=== PATIENT | female | born 1945 | race Caucasian/White ===

== ENCOUNTER → 2019-05-05 | Outpatient (CLI) | payer MEDICAID, MEDICARE ==
[2019-05-05 09:12] LABS: Basophils # (auto) 0.1 uL; Basophils % (auto) 1.3 % (0.0-2.0); Eosinophils # (auto) 0.3 uL; Eosinophils % (auto) 4.1 % (0.0-7.0); Hematocrit 35.1 % (36.0-46.0); Hemoglobin 11.9 g/dL (12.2-16.2); Mean Corpuscular Hemoglobin 28.9 pg (28.0-32.0); Mean Corpuscular Hgb Conc. 33.8 g/dL (32.0-36.0); Mean Corpuscular Volume 85.6 fL (80.0-100.0); Monocytes # (auto) 0.5 uL; Monocytes % (auto) 6.9 % (0.0-12.0); Neutrophils # (auto) 3.8 uL; Neutrophils % (auto) 57.7 % (37.0-80.0); Platelet Count (auto) 154 10^3/uL (140-450); Red Cell Distribution Width 14.2 % (11.8-14.3); White Blood Cell 6.7 10^3/uL (4.4-10.8)
[2019-05-05 09:13] LABS: Urine Bacteria MOD /hpf (None Seen); Urine Blood Negative /uL (Negative); Urine Specific Gravity 1.012 (1.001-1.035); Urine WBC 24 /hpf (0 - 5)
[2019-05-05 11:04] LABS: Albumin 3.3 g/dL (3.4-5.0); BUN/Creatinine Ratio 23.2; Bilirubin, Total 0.3 mg/dL (0.2-1.0); Calcium 8.8 mg/dL (8.5-10.1); Total Protein 6.4 g/dL (6.4-8.2)
== END | disposition home or self-care (01) ==
LOC: LAB 07:25
PROVIDERS: ATTEND Physician Assistant
DX: G62.9 Polyneuropathy, unspecified (principal); E11.69 Type 2 diabetes mellitus with other specified complication; F48.2 Pseudobulbar affect; E78.49 Other hyperlipidemia; Z87.19 Personal history of other diseases of the digestive system
CPT/HCPCS: 36415; 80053; 80061; 81001; 83036; 85025

== ENCOUNTER 2019-06-08 17:38 | Inpatient (IN) | payer MEDICARE, MEDICAID ==
[~2019-06-08] VITALS: Ht 167.6 cm; Wt 93.0 kg
[2019-06-08] MEDS ORDERED: DEXTROSE 50% SYRINGE 50 ML IV ONE (17:43)
[2019-06-08] MEDS ORDERED: DEXTROSE (50%) 50ML SYRG IV ONE (17:45)
[2019-06-08] MEDS ORDERED: DEXTROSE 10% 1,000 ML IV ONE (18:00)
[2019-06-08 18:04] LABS: Basophils # (auto) 0.1 uL; Eosinophils # (auto) 0.3 uL; Eosinophils % (auto) 3.1 % (0.0-7.0); Hemoglobin 13.3 g/dL (12.2-16.2); Lymphocytes # (auto) 3.5 uL; Lymphocytes % (auto) 36.6 % (10.0-50.0); Mean Corpuscular Hemoglobin 29.4 pg (28.0-32.0); Mean Corpuscular Hgb Conc. 34.2 g/dL (32.0-36.0); Mean Corpuscular Volume 85.9 fL (80.0-100.0); Monocytes # (auto) 0.8 uL; Monocytes % (auto) 8.3 % (0.0-12.0); Neutrophils # (auto) 4.8 uL; Nucleated Red Blood Cells % 0.1 %; Platelet Count (auto) 119 10^3/uL (140-450); Red Blood Cells 4.54 10^6/uL (4.0-5.20); Red Cell Distribution Width 14.4 % (11.8-14.3); White Blood Cell 9.4 10^3/uL (4.4-10.8)
[2019-06-08 18:18] LABS: INR < 0.93 (0.9-1.15); Partial Thromboplastin Time 28.3 sec (23.64-32.05)
[2019-06-08 18:19] LABS: Albumin 3.6 g/dL (3.4-5.0); Anion Gap 6 (5-15); Blood Alcohol < 3.0 mg/dL (0-5); Blood Urea Nitrogen 49 mg/dL (7-18); Calcium 8.7 mg/dL (8.5-10.1); Carbon Dioxide 22 mmol/L (21-32); Chloride 101 mmol/L (98-107); Glucose 61 mg/dL (74-106); Potassium 4.3 mmol/L (3.5-5.1); Sodium 129 mmol/L (136-145)
[2019-06-08 18:22] LABS: Alanine Aminotransferase 18 U/L (13-56); Alkaline Phosphatase 60 U/L (45-117); Aspartate Aminotransferase 19 U/L (15-37); BUN/Creatinine Ratio 25.3; Bilirubin, Total 0.3 mg/dL (0.2-1.0); GFR African American 33 mL/min; GFR Non-African American 27 mL/min; Total Protein 7.3 g/dL (6.4-8.2)
[2019-06-08 20:54] LABS: Urine Bacteria FEW /hpf (None Seen); Urine Blood Negative /uL (Negative); Urine Specific Gravity 1.004 (1.001-1.035); Urine WBC 4 /hpf (0 - 5)
[2019-06-08 21:15] LABS: Alcohol, Urine < 3.0 mg/dL (0-5); Amphetamine Screen, Urine NEGATIVE (NEGATIVE); Barbiturate Scree,Urine NEGATIVE (NEGATIVE); Benzodiazephine Screen, Urine NEGATIVE (NEGATIVE); Cannabinoid Screen, Urine NEGATIVE (NEGATIVE); Cocaine Screen, Urine NEGATIVE (NEGATIVE); Opiate Scree,Urine NEGATIVE (NEGATIVE); Phencyclidine Screen, Urine NEGATIVE (NEGATIVE)
[2019-06-08] MEDS ORDERED: DEXTROSE (50%) 50ML SYRG IV PRN (22:00)
[2019-06-08] MEDS ORDERED: MORPHINE SULF INJ 2 MG/ML SYRINGE 1ML IV PRN (22:00)
[2019-06-08] MEDS ORDERED: DOCUSATE SOD 100 MG CAP PO PRN (22:00)
[2019-06-08] MEDS ORDERED: TEMAZEPAM 15 MG CAP PO PRN (22:00)
[2019-06-08] MEDS ORDERED: ONDANSETRON HCL 4 MG/2 ML VIAL IV PRN (22:00)
[2019-06-08] MEDS ORDERED: ACETAMINOPHEN 325 MG TAB PO PRN (22:00)
[2019-06-08] MEDS ORDERED: NITROGLYCERIN 0.4 MG SL TAB SL PRN (22:00)
[2019-06-08] MEDS ORDERED: INSLANTI SC (22:02)
[2019-06-08] MEDS ORDERED: PRA25T GT (22:02)
[2019-06-08] MEDS ORDERED: CANA300T OR (22:02)
[2019-06-08] MEDS ORDERED: METO25TA5 PO (22:02)
[2019-06-08] MEDS ORDERED: ATOR1TAB PO (22:02)
[2019-06-08] MEDS ORDERED: HYDR25TA4 PO (22:02)
[2019-06-08] MEDS ORDERED: BRIN1SUS EACHEYE (22:02)
[2019-06-08] MEDS ORDERED: DEXT20CA PO (22:02)
[2019-06-08] MEDS ORDERED: RIVA20TA PO (22:02)
[2019-06-08] MEDS ORDERED: AML5T GT (22:02)
[2019-06-08] MEDS ORDERED: RANI150C11 PO (22:02)
[2019-06-08] MEDS ORDERED: BRIM0.2S2 OP (22:02)
[2019-06-08] MEDS ORDERED: LISI40TA PO (22:02)
[2019-06-08] MEDS ORDERED: DULA0.5I SC (22:02)
[2019-06-08] MEDS ORDERED: NETA0.02 OP (22:02)
[2019-06-08] MEDS ORDERED: RANI-226 PO (22:02)
[2019-06-08] MEDS ORDERED: RIS1T GT (22:02)
[2019-06-08] MEDS: SODIUM CHLORIDE 0.9% 1,000 ML IV SCH (23:27)
[2019-06-08] MEDS: ACCU-CHEK COMFORT CURVE STRIP VI SCH (23:28)
[2019-06-08] MEDS: InsuLIN REG 1unit/0.01ml Soln (100units/ml) SC SCH (23:29)
[2019-06-09] VITALS (7 sets, daily range): BP systolic 123–155; BP diastolic 54–65
--- NOTE | 2019-06-09 00:55 | NUR ---
Telemetry admit from ER INOCENTE KILLIAN admitted to Telemetry unit after SBAR received. Patient oriented to Ed Jay primary RN, unit, room, bed, and unit policies regarding patient care and visiting hours. Patient now on continuous telemetry monitoring, tele box # 70 and telemetry reading on arrival to unit is sinus bradycardia. Patient placed on bedside oxygen, weighed by bedscale and encouraged to call if they need something. All questions and concerns addressed, patient verbalized understanding.
[2019-06-09] MEDS: InsuLIN REG 1unit/0.01ml Soln (100units/ml) SC SCH ×3 (06:00→17:49)
[2019-06-09 06:05] LABS: Calcium 8.8 mg/dL (8.5-10.1); Potassium 4.2 mmol/L (3.5-5.1)
[2019-06-09 06:06] LABS: Basophils # (auto) 0.1 uL; Basophils % (auto) 0.8 % (0.0-2.0); Eosinophils # (auto) 0.2 uL; Eosinophils % (auto) 2.9 % (0.0-7.0); Hematocrit 34.1 % (36.0-46.0); Lymphocytes # (auto) 2.5 uL; Lymphocytes % (auto) 33.2 % (10.0-50.0); Mean Corpuscular Hemoglobin 29.8 pg (28.0-32.0); Mean Corpuscular Hgb Conc. 35.3 g/dL (32.0-36.0); Mean Corpuscular Volume 84.5 fL (80.0-100.0); Monocytes # (auto) 0.7 uL; Monocytes % (auto) 9.9 % (0.0-12.0); Neutrophils % (auto) 53.2 % (37.0-80.0); Nucleated Red Blood Cells % 0.1 %; Platelet Count (auto) 118 10^3/uL (140-450); Red Blood Cells 4.04 10^6/uL (4.0-5.20); Red Cell Distribution Width 13.7 % (11.8-14.3); White Blood Cell 7.6 10^3/uL (4.4-10.8)
[2019-06-09 06:07] LABS: BUN/Creatinine Ratio 26.1
[2019-06-09] MEDS: ACCU-CHEK COMFORT CURVE STRIP VI SCH ×3 (06:25→17:49)
--- NOTE | 2019-06-09 06:50 | NUR ---
Informed hospitalist Blayne re critical blood sugar of 46. Accu check is 51 and 51 after repeated. Patient is alert and able to swallow, 8oz apple juice given. Will continue to monitor.
--- NOTE | 2019-06-09 07:20 | NUR ---
OPENING NOTE ASSUMED CARE OF PT. ALERT AND ORIENTED. NO S/S OF SOB/DISTRESS NOTED. FALL PRECAUTIONS IN PLACE. BED SET TO LOWEST POSITION/LOCKED. BEDSIDE RAILS UP X2. CALL LIGHT WITHIN REACH. BED ALARM ON. INSTRUCTED PT TO CALL FOR ASSISTANCE. DISCUSSED ON POC. PT VERBALIZED UNDERSTANDING. WILL CONTINUE TO MONITOR Q 1HR AND PRN.
[2019-06-09] MEDS: PANTOPRAZOLE 40 MG TAB PO SCH (11:00)
[2019-06-09] MEDS: SODIUM CHLORIDE 0.9% 1,000 ML IV SCH (11:20)
--- NOTE | 2019-06-09 16:30 | NUR ---
PT DECLINED P.T. BECAUSE OF KNEE PAIN.
[2019-06-09] MEDS: D5W/SOD CHLO 0.9% 1,000 ML IV SCH (16:31)
--- NOTE | 2019-06-09 19:15 | NUR ---
Opening Shift Note Received report from Sanaz DEL RIO. Assumed care of patient, awake and alert. No S/S of distress/SOB or pain. Instructed on POC and to call for assist PRN, will continue to monitor for changes Q1hr and PRN.
[2019-06-09] MEDS: hydrALAZINE HCL 20 MG/ML VL IV PRN (22:05)
[2019-06-09] MEDS: ATORVASTATIN 20 MG TAB PO SCH (22:06)
[2019-06-10] MEDS: ACCU-CHEK COMFORT CURVE STRIP VI SCH ×5 (00:18→22:29)
[2019-06-10] MEDS: InsuLIN REG 1unit/0.01ml Soln (100units/ml) SC SCH ×5 (00:19→22:29)
[2019-06-10 05:43] VITALS: BP 162/64
[2019-06-10] MEDS: hydrALAZINE HCL 20 MG/ML VL IV PRN (06:05)
[2019-06-10] MEDS: D5W/SOD CHLO 0.9% 1,000 ML IV SCH (06:07)
--- NOTE | 2019-06-10 07:25 | NUR ---
Opening Shift Note: Assumed care of patient. Patient asleep in bed. No S/S of distress/SOB or pain. Bed in lowest locked position, side rails up x 2, call light within reach. Patient will be instructed on POC and to call for assist PRN, will continue to monitor for changes Q1hr and PRN.
[2019-06-10 07:43] LABS: Basophils # (auto) 0.1 uL; Eosinophils # (auto) 0.1 uL; Eosinophils % (auto) 1.8 % (0.0-7.0); Hematocrit 37.9 % (36.0-46.0); Hemoglobin 13.3 g/dL (12.2-16.2); Lymphocytes # (auto) 1.7 uL; Lymphocytes % (auto) 24.6 % (10.0-50.0); Mean Corpuscular Hemoglobin 29.7 pg (28.0-32.0); Mean Corpuscular Hgb Conc. 35.1 g/dL (32.0-36.0); Mean Corpuscular Volume 84.8 fL (80.0-100.0); Monocytes # (auto) 0.7 uL; Monocytes % (auto) 10.7 % (0.0-12.0); Neutrophils # (auto) 4.2 uL; Neutrophils % (auto) 61.9 % (37.0-80.0); Nucleated Red Blood Cells % 0.1 %; Platelet Count (auto) 128 10^3/uL (140-450); Red Blood Cells 4.47 10^6/uL (4.0-5.20); Red Cell Distribution Width 14.2 % (11.8-14.3); White Blood Cell 6.9 10^3/uL (4.4-10.8)
[2019-06-10 07:54] LABS: Calcium 8.8 mg/dL (8.5-10.1); Magnesium 2.5 mg/dL (1.6-2.6); Potassium 4.9 mmol/L (3.5-5.1)
[2019-06-10 07:57] LABS: BUN/Creatinine Ratio 26.2
[2019-06-10 08:36] LABS: Folate (Folic Acid) > 24.00 ng/mL (5.38-24)
--- NOTE | 2019-06-10 08:49 | NUR ---
EKG ORDERED AND PERFORMED.
[2019-06-10 09:00] VITALS: BP 139/50
[2019-06-10] MEDS ORDERED: amLODIPine BESYLATE 5 MG TAB PO SCH (10:00)
[2019-06-10] MEDS: ASPirin-EC 81 mg tab PO SCH (10:26)
[2019-06-10] MEDS: amLODIPine BESYLATE 5 MG TAB PO SCH (10:26)
[2019-06-10] MEDS: ENOXAPARIN SOD 30 MG/0.3 ML SYRINGE SC SCH (10:27)
[2019-06-10] MEDS: PANTOPRAZOLE 40 MG TAB PO SCH (10:27)
--- NOTE | 2019-06-10 11:40 | NUR ---
IV insertion: IV access obtained, via clean sterile technique by inserting 22 gauge catheter at RIGHT FOREARM after 2 attempts. IV secured properly. No trauma to site. Patient tolerated well.
--- NOTE | 2019-06-10 11:45 | NUR ---
IV removal: IV DC'd with clean sterile technique, catheter fully intact. Pressure dressing applied to site. Patient tolerated well.
[2019-06-10] MEDS: SODIUM CHLORIDE 0.9% 1,000 ML IV SCH (12:02)
[2019-06-10] MEDS ORDERED: DEXTROSE (50%) 50ML SYRG IV PRN (12:15)
[2019-06-10] MEDS ORDERED: LISINOPRIL 10 MG TAB PO ONE (12:15)
[2019-06-10 13:00] VITALS: BP 135/60
--- NOTE | 2019-06-10 15:45 | NUR ---
Discharge planning per consult, patient has order to dc with home health for a safety evaluation, med management and vitals. Presented patient with a choice letter and options for home health. She advised she did not have a preference. At the time of signing patient advised that she had poor eyesight. Nurse Herbert was there as a witness that patient indicated that she did not have a preference. Form was signed by the nurse and myself. Referral was faxed to [facility], placed a follow up call, spoke with Doroteo and was advised that they will accept this patient on discharge. Patient does not have a discharge order as of today 06.10.19. Doroteo advised she will follow up tomorrow 06.11.19 to see if the patient was discharged and if so, will start care on Saturday06.12.19. Nurse Mims was advised. Addendum: 06/10/19 at 1555 by MURIEL MOOREO SS Amended: Links added. Addendum: 06/11/19 at 1533 by MURIEL CHET SS Received a call from Nurse Garcia advising that patient is scheduled to dc today. Advised that home health was set up with [facility] and start of care will be tomorrow Saturday06.12.19. Placed a follow up call to [facility], spoke with Sona, advised that patient is dc'd as of today, confirmed start of care for tomorrow. Nurse Garcia was advised of dc plan.
[2019-06-10 17:00] VITALS: BP_SYST 126; BP_SYST 136; BP_SYST 152; BP_DIAS 40; BP_DIAS 97
--- NOTE | 2019-06-10 17:05 | NUR ---
EEG COMPLETED AT BEDSIDE. RN ED AWARE.
--- NOTE | 2019-06-10 17:21 | NUR ---
Orthostatic blood pressure: LAYING- 126/40 SITTING- 136/55 STANDING- 152/97
[2019-06-10] MEDS ORDERED: INSULIN LANTUS (GLARGINE) 1 /0.01ml (100units/ml) SC SCH (22:00)
[2019-06-10] MEDS: ATORVASTATIN 20 MG TAB PO SCH (22:17)
[2019-06-10 22:18] VITALS: BP 147/61
[2019-06-11] MEDS: SODIUM CHLORIDE 0.9% 1,000 ML IV SCH (02:13)
--- NOTE | 2019-06-11 03:51 | NUR ---
Opening Shift Note Assumed care of patient, awake and alert oriented x4. No S/S of distress/SOB or pain noted. Bed is in lowest locked position with bed rails up x2 and call light is within reach of the patient. Instructed on POC and to call for assist PRN.
--- NOTE | 2019-06-11 03:52 | NUR ---
IV insertion IV access obtained, via clean sterile technique by inserting 22 gauge catheter at right forearm. IV secured properly. No trauma to site. Patient tolerated well.
--- NOTE | 2019-06-11 03:53 | NUR ---
IV removal IV DC'd with clean sterile technique, catheter fully intact. Pressure dressing applied to site and secured with coband. Patient tolerated well.
[2019-06-11 05:40] VITALS: BP 122/47
[2019-06-11 06:40] LABS: Potassium 4.8 mmol/L (3.5-5.1)
[2019-06-11] MEDS: ACCU-CHEK COMFORT CURVE STRIP VI SCH ×2 (06:40→11:24)
[2019-06-11] MEDS: InsuLIN REG 1unit/0.01ml Soln (100units/ml) SC SCH ×2 (06:40→11:29)
[2019-06-11 06:45] LABS: BUN/Creatinine Ratio 25.1; Calcium 8.6 mg/dL (8.5-10.1)
--- NOTE | 2019-06-11 07:45 | NUR ---
Opening Note Assumed pt care from [facility] nurse. PT is a/ox3-4; her demeanor is slightly flat as well as anxious. Pt started crying with me during my assessment; upon asking her what was wrong she stated "I'm going home today". Spoke with pt about going home as well as who she lives with; to which calmed her down. Discussed POC with pt; pt verbalized understanding. Safety measures maintained with call light within reach, bed in lowest position and side rails up. Will continue to monitor for changes q1hr and prn.
[2019-06-11 09:00] VITALS: BP 120/73
[2019-06-11] MEDS: PANTOPRAZOLE 40 MG TAB PO SCH (09:40)
[2019-06-11] MEDS: ASPirin-EC 81 mg tab PO SCH (09:40)
[2019-06-11] MEDS: ENOXAPARIN SOD 30 MG/0.3 ML SYRINGE SC SCH (09:40)
[2019-06-11] MEDS: amLODIPine BESYLATE 5 MG TAB PO SCH (09:41)
[2019-06-11] MEDS ORDERED: LISINOPRIL 10 MG TAB PO SCH (10:00)
--- NOTE | 2019-06-11 10:00 | NUR ---
Pt Self removed Jorgensen Catheter Pt self removed jorgensen cath upon moving around in bed. Assessed pt; site is asymptomatic and pt states that she is not in any pain. Will reinsert jorgensen catheter.
--- NOTE | 2019-06-11 10:33 | NUR ---
Jorgensen Catheter Insertion 14 luxembourgish jorgensen catheter placed using sterile technique. Pt tolerated well. Bag hung to gravity and secured to leg. Will continue to monitor and instructed pt to be careful with the catheter.
[2019-06-11] MEDS ORDERED: INSULIN LANTUS (GLARGINE) 1 /0.01ml (100units/ml) SC ONE (10:45)
--- NOTE | 2019-06-11 11:00 | NUR ---
Dr Arnold at Bedside Spoke with pt as well as [id number] about d/c today home. Pt verbalized understanding. To remove jorgensen catheter. Will follow through with orders.
--- NOTE | 2019-06-11 11:10 | NUR ---
LYNN CATHETER REMOVED CATHETER REMOVED WITHOUT ANY COMPLICATIONS NOTED. PT TOLERATED WELL. PT INSTRUCTED ON NEED TO VOID BEFORE D/C; PT VERBALIZED UNDERSTANDING.
[2019-06-11] MEDS ORDERED: INSLANTI SC (12:22)
[2019-06-11] MEDS ORDERED: AML5T PO (12:22)
[2019-06-11] MEDS ORDERED: LISI-646 PO (12:23)
--- NOTE | 2019-06-11 12:34 | NUR ---
assessment Patient is 73 year old female who is alert and oriented. Patients cognitive abilities are intact. Prior to admission patient lived home with family and functioned with assistance. Per patient she will return home to her prior living arrangements post discharge and family will transport her home. Patient informed me her daughter in law Irma is her caregiver. Patient has a cane and fww for home use. Patient has a ss consult for safety, PT med management and vitals. Patient and Irma agree to home health. I informed patient she has a right to speak to a professor of social work regarding all care. I informed patient she has a right to participate in any and all discharge planning. Patient does not have a POA and advanced directive. I have offered patient information on POA and advanced directives. I informed the patient the advantages and benefits of having an Advanced Directive. Patient verbalized understanding and agreed to discharge plan home with home health. Addendum: 06/11/19 at 1243 by Ricarda LOZOYA Amended: Links added.
--- NOTE | 2019-06-11 12:35 | NUR ---
PT ABLE TO VOID W/O DIFFICULTY
[2019-06-11 13:00] VITALS: BP 129/78
[2019-06-11 14:33] VITALS: BP 129/78
--- NOTE | 2019-06-11 14:59 | NUR ---
Spoke with Julissa from Social Service Per D/C Home health has been set up through [facility] and will begin service tomorrow. Will speak to pt and pt's [id number].
--- NOTE | 2019-06-11 16:00 | NUR ---
IV D/C'ed IV from pt's R FA removed fully intact. Site is asymptomatic and pt tolerated removal well. Pressure applied for 3 minutes with gauze; wrapped site in coban. Pt instructed to leave dressing on for 30 minutes. Pt verbalized understanding.
--- NOTE | 2019-06-11 16:15 | NUR ---
PT D/D'ed Off Unit Pt taken off unit via wheelchair accompanied by her [id number]. IV removed, telebox removed and pt took all belongings as well as educational material. All questions were answered, all prescriptions were given, and pt was instructed to make f/u appointments. Both daughter in law and pt verbalized understanding.
== END 2019-06-11 16:15 | disposition home health service (06) | DRG 637 ==
LOC: ER 17:38 → TELE 17:39 → TELE-WESTW 23:24
PROVIDERS: ADMIT Nurse Practitioner; ATTEND Internal Medicine
DX: E11.649 Type 2 diabetes mellitus with hypoglycemia without coma (principal); G93.41 Metabolic encephalopathy; E87.1 Hypo-osmolality and hyponatremia; N17.9 Acute kidney failure, unspecified; R00.1 Bradycardia, unspecified; N18.4 Chronic kidney disease, stage 4 (severe); I12.9 Hypertensive chronic kidney disease with stage 1 through stage 4 chronic kidney disease, or unspecified chronic kidney disease; E11.22 Type 2 diabetes mellitus with diabetic chronic kidney disease; E66.01 Morbid (severe) obesity due to excess calories; E78.5 Hyperlipidemia, unspecified; F12.90 Cannabis use, unspecified, uncomplicated; G89.29 Other chronic pain; I25.10 Atherosclerotic heart disease of native coronary artery without angina pectoris; R55 Syncope and collapse; M25.461 Effusion, right knee; E11.21 Type 2 diabetes mellitus with diabetic nephropathy; H54.8 Legal blindness, as defined in USA; M85.80 Other specified disorders of bone density and structure, unspecified site; M19.90 Unspecified osteoarthritis, unspecified site; Z68.33 Body mass index [BMI] 33.0-33.9, adult; Z88.1 Allergy status to other antibiotic agents; Z88.5 Allergy status to narcotic agent; Z86.73 Personal history of transient ischemic attack (TIA), and cerebral infarction without residual deficits; Z95.1 Presence of aortocoronary bypass graft; Z88.0 Allergy status to penicillin; Z88.2 Allergy status to sulfonamides; Z88.8 Allergy status to other drugs, medicaments and biological substances; Z79.4 Long term (current) use of insulin; Z79.82 Long term (current) use of aspirin; Z79.899 Other long term (current) drug therapy; Z82.49 Family history of ischemic heart disease and other diseases of the circulatory system; Z86.718 Personal history of other venous thrombosis and embolism; Z83.3 Family history of diabetes mellitus; Z90.49 Acquired absence of other specified parts of digestive tract
CPT/HCPCS: 36415; 70450; 70551; 71045; 73562; 80048; 80053; 80061; 80307; 80320; 81001; 82607; 82746; 82962; 83036; 83735; 84443; 84484; 85025; 85610; 85730; 93005; 93306; 93886; 95819; 96365; 96375; 97116; 97163; 97530; G0378; J1815; J7042

== ENCOUNTER → 2019-06-24 | Outpatient (CLI) | payer MEDICARE, MEDICAID ==
[~2019-06-24] MED LIST: AML5T PO; ATOR1TAB PO; BRIM0.2S2 OP; BRIN1SUS EACHEYE; DEXT20CA PO; DULA0.5I SC; INSLANTI SC; LISI-646 PO; NETA0.02 OP; PRA25T GT; RANI-226 PO; RANI150C11 PO; RIS1T GT; RIVA20TA PO
[2019-06-24 12:19] LABS: Magnesium 2.2 mg/dL (1.6-2.6); Potassium 4.5 mmol/L (3.5-5.1)
[2019-06-24 12:27] LABS: Albumin 3.4 g/dL (3.4-5.0); Bilirubin, Total 0.3 mg/dL (0.2-1.0); Calcium 9.1 mg/dL (8.5-10.1); Phosphorus 4.4 mg/dL (2.5-4.90); Total Protein 6.7 g/dL (6.4-8.2); Uric Acid 7.7 mg/dL (2.6-6.0)
== END | disposition home or self-care (01) ==
LOC: LAB 11:00
PROVIDERS: ATTEND Internal Medicine Nephrology
DX: E56.9 Vitamin deficiency, unspecified (principal); M10.9 Gout, unspecified; E21.3 Hyperparathyroidism, unspecified; N39.0 Urinary tract infection, site not specified; I12.9 Hypertensive chronic kidney disease with stage 1 through stage 4 chronic kidney disease, or unspecified chronic kidney disease; N18.3 Chronic kidney disease, stage 3 (moderate)
CPT/HCPCS: 36415; 80053; 82306; 83735; 83970; 84100; 84550; 87086

== ENCOUNTER → 2019-07-06 | Outpatient (CLI) | payer MEDICARE, MEDICAID ==
[~2019-07-06] VITALS: Ht 167.6 cm; Wt 94.8 kg
[~2019-07-06] MED LIST changes: +ADENOSINE 80 MG in GIVE UN-DILUTED 0 ML IV ONE; +ADENOSINE 90 MG/30 ML INJ IV ONE
== END | disposition home or self-care (01) ==
LOC: Rad HDHVI 12:58
PROVIDERS: ATTEND Internal Medicine Cardiovascular Disease
DX: I12.9 Hypertensive chronic kidney disease with stage 1 through stage 4 chronic kidney disease, or unspecified chronic kidney disease (principal); E11.22 Type 2 diabetes mellitus with diabetic chronic kidney disease; N18.4 Chronic kidney disease, stage 4 (severe); I25.10 Atherosclerotic heart disease of native coronary artery without angina pectoris; E21.3 Hyperparathyroidism, unspecified; R42 Dizziness and giddiness; E78.5 Hyperlipidemia, unspecified; G89.29 Other chronic pain; M19.90 Unspecified osteoarthritis, unspecified site; E11.21 Type 2 diabetes mellitus with diabetic nephropathy; E66.01 Morbid (severe) obesity due to excess calories; Z68.33 Body mass index [BMI] 33.0-33.9, adult; Z86.718 Personal history of other venous thrombosis and embolism; Z95.1 Presence of aortocoronary bypass graft; Z86.73 Personal history of transient ischemic attack (TIA), and cerebral infarction without residual deficits; Z79.899 Other long term (current) drug therapy; Z79.82 Long term (current) use of aspirin; Z79.4 Long term (current) use of insulin; Z90.49 Acquired absence of other specified parts of digestive tract
CPT/HCPCS: 78452; 93005; 96374; 96375; A9500; J0153

== ENCOUNTER → 2019-08-04 | Outpatient (CLI) | payer MEDICARE, MEDICAID ==
[~2019-08-04] MED LIST changes: -ADENOSINE 80 MG in GIVE UN-DILUTED 0 ML IV ONE; -ADENOSINE 90 MG/30 ML INJ IV ONE
[2019-08-04 12:19] LABS: Calcium 8.4 mg/dL (8.5-10.1); Potassium 4.8 mmol/L (3.5-5.1)
[2019-08-04 12:21] LABS: BUN/Creatinine Ratio 20.2; Uric Acid 7.5 mg/dL (2.6-6.0)
== END | disposition home or self-care (01) ==
LOC: LAB 11:21
PROVIDERS: ATTEND Internal Medicine
DX: I12.9 Hypertensive chronic kidney disease with stage 1 through stage 4 chronic kidney disease, or unspecified chronic kidney disease (principal); E11.22 Type 2 diabetes mellitus with diabetic chronic kidney disease; N18.4 Chronic kidney disease, stage 4 (severe); E78.5 Hyperlipidemia, unspecified; Z12.11 Encounter for screening for malignant neoplasm of colon
CPT/HCPCS: 36415; 80048; 84550

== ENCOUNTER → 2019-08-18 | Outpatient (CLI) | payer MEDICARE, MEDICAID ==
[~2019-08-18] MED LIST changes: +ALLO100T PO; +BRIM0.2S2 EACHEYE; -BRIM0.2S2 OP; +LATA0.0015 EACHEYE; +LISI10TA6 PO; +NETA0.02 EACHEYE; -NETA0.02 OP; +POLYSOL2 EACHEYE; -PRA25T GT; +PRA25T PO
[2019-08-18 09:15] VITALS: BP 138/66
--- NOTE | 2019-08-18 09:45 | NUR ---
Pre-Op Discharge Summary: See e-MAR for any medications given for this visit. Pre-op orders received and carried out per MD of EKG, LABS and chest xrays. Patient given a copy of EKG with instructions to go to [facility] out patient for further follow up care.
[2019-08-18 10:46] VITALS: BP 138/66
[2019-08-18 12:35] LABS: Basophils # (auto) 0.1 uL; Basophils % (auto) 1.9 % (0.0-2.0); Eosinophils # (auto) 0.2 uL; Eosinophils % (auto) 3.3 % (0.0-7.0); Hematocrit 35.3 % (36.0-46.0); Hemoglobin 12.3 g/dL (12.2-16.2); Lymphocytes # (auto) 2.2 uL; Lymphocytes % (auto) 33.7 % (10.0-50.0); Mean Corpuscular Hemoglobin 30.4 pg (28.0-32.0); Mean Corpuscular Hgb Conc. 34.8 g/dL (32.0-36.0); Mean Corpuscular Volume 87.3 fL (80.0-100.0); Monocytes # (auto) 0.5 uL; Monocytes % (auto) 7.4 % (0.0-12.0); Neutrophils # (auto) 3.4 uL; Neutrophils % (auto) 53.7 % (37.0-80.0); Platelet Count (auto) 184 10^3/uL (140-450); Red Blood Cells 4.04 10^6/uL (4.0-5.20); Red Cell Distribution Width 13.3 % (11.8-14.3); White Blood Cell 6.4 10^3/uL (4.4-10.8)
[2019-08-18 12:44] LABS: BUN/Creatinine Ratio 24.6; Calcium 8.5 mg/dL (8.5-10.1); Potassium 4.9 mmol/L (3.5-5.1)
[2019-08-18 12:49] LABS: INR 0.96 (0.9-1.15)
== END | disposition home or self-care (01) ==
LOC: Rad HDHVI 09:08
PROVIDERS: ATTEND Internal Medicine Cardiovascular Disease
DX: Z01.812 Encounter for preprocedural laboratory examination (principal); I70.0 Atherosclerosis of aorta; R94.31 Abnormal electrocardiogram [ECG] [EKG]
CPT/HCPCS: 36415; 71046; 80048; 85025; 85610; 85730; 93005; G0463

== ENCOUNTER 2019-08-29 22:04 | Emergency (ER) | payer MEDICARE, MEDICAID ==
[~2019-08-29] VITALS: Ht 167.6 cm; Wt 99.8 kg
[~2019-08-29 22:04] MED LIST changes: -LISI-646 PO; -RANI-226 PO; -RIS1T GT
[2019-08-29] MEDS ORDERED: SODIUM CHLORIDE 0.9% 500 ML IVB ONE (22:52)
[2019-08-29] MEDS ORDERED: InsuLIN REG 1unit/0.01ml Soln (100units/ml) IV ONE (23:00)
[2019-08-29 23:15] LABS: Basophils # (auto) 0.1 uL; Eosinophils # (auto) 0.3 uL; Eosinophils % (auto) 4.5 % (0.0-7.0); Hematocrit 32.9 % (36.0-46.0); Hemoglobin 11.5 g/dL (12.2-16.2); Lymphocytes # (auto) 1.7 uL; Lymphocytes % (auto) 25.4 % (10.0-50.0); Mean Corpuscular Hemoglobin 30.7 pg (28.0-32.0); Mean Corpuscular Hgb Conc. 34.9 g/dL (32.0-36.0); Mean Corpuscular Volume 88.1 fL (80.0-100.0); Monocytes # (auto) 0.6 uL; Monocytes % (auto) 8.6 % (0.0-12.0); Neutrophils # (auto) 4.2 uL; Neutrophils % (auto) 60.5 % (37.0-80.0); Platelet Count (auto) 175 10^3/uL (140-450); Red Blood Cells 3.73 10^6/uL (4.0-5.20); Red Cell Distribution Width 13.1 % (11.8-14.3); White Blood Cell 6.9 10^3/uL (4.4-10.8)
[2019-08-29 23:32] LABS: Magnesium 2.1 mg/dL (1.6-2.6)
[2019-08-29 23:33] LABS: Albumin 3.1 g/dL (3.4-5.0); BUN/Creatinine Ratio 21.8; Calcium 8.2 mg/dL (8.5-10.1); Potassium 4.7 mmol/L (3.5-5.1)
[2019-08-29 23:47] LABS: Bilirubin, Total 0.2 mg/dL (0.2-1.0); Total Protein 6.3 g/dL (6.4-8.2)
[2019-08-30 01:45] VITALS: BP 142/78
== END 2019-08-30 02:39 | disposition home or self-care (01) ==
LOC: EDBD 22:04 → ER 22:09
DX: E11.65 Type 2 diabetes mellitus with hyperglycemia (principal); I10 Essential (primary) hypertension; Z88.0 Allergy status to penicillin; Z88.6 Allergy status to analgesic agent; Z88.8 Allergy status to other drugs, medicaments and biological substances; Z79.899 Other long term (current) drug therapy
CPT/HCPCS: 36415; 71045; 80053; 82010; 82962; 83735; 84484; 85025; 93005; 96361; 96374; 99284; J7040

== ENCOUNTER → 2019-09-04 | Outpatient (CLI) | payer MEDICARE, MEDICAID | END | disposition home or self-care (01) | LOC: Rad HDHVI 12:16 | PROVIDERS: ATTEND Internal Medicine Cardiovascular Disease | DX: I51.7 Cardiomegaly (principal); R06.02 Shortness of breath | CPT/HCPCS: 71046 ==

== ENCOUNTER → 2019-09-21 | Outpatient (CLI) | payer MEDICARE, MEDICAID ==
[~2019-09-21] MED LIST changes: +OMEP20TA PO
[2019-09-21 15:14] LABS: Basophils # (auto) 0.1 uL; Basophils % (auto) 1.5 % (0.0-2.0); Eosinophils # (auto) 0.3 uL; Eosinophils % (auto) 5.5 % (0.0-7.0); Hematocrit 33.6 % (36.0-46.0); Hemoglobin 11.9 g/dL (12.2-16.2); Mean Corpuscular Hemoglobin 31.3 pg (28.0-32.0); Mean Corpuscular Hgb Conc. 35.3 g/dL (32.0-36.0); Mean Corpuscular Volume 88.8 fL (80.0-100.0); Monocytes # (auto) 0.5 uL; Monocytes % (auto) 9.3 % (0.0-12.0); Neutrophils # (auto) 2.8 uL; Neutrophils % (auto) 48.7 % (37.0-80.0); Nucleated Red Blood Cells % 0.1 %; Platelet Count (auto) 153 10^3/uL (140-450); Red Blood Cells 3.79 10^6/uL (4.0-5.20); Red Cell Distribution Width 14.1 % (11.8-14.3); White Blood Cell 5.8 10^3/uL (4.4-10.8)
[2019-09-21 15:19] LABS: Albumin 3.6 g/dL (3.4-5.0); Potassium 4.8 mmol/L (3.5-5.1)
[2019-09-21 15:20] LABS: Urine Bacteria NONE SEEN /hpf (None Seen); Urine Blood Negative /uL (Negative); Urine Specific Gravity 1.021 (1.001-1.035); Urine WBC 2 /hpf (0 - 5)
[2019-09-21 15:23] LABS: BUN/Creatinine Ratio 25.7; Bilirubin, Total 0.3 mg/dL (0.2-1.0); Phosphorus 3.4 mg/dL (2.5-4.90); Total Protein 6.8 g/dL (6.4-8.2); Uric Acid 6.1 mg/dL (2.6-6.0)
[2019-09-21 15:35] LABS: Protein, Urine 59.8 mg/dL (0.0-11.9)
== END | disposition home or self-care (01) ==
LOC: LAB 14:29
PROVIDERS: ATTEND Internal Medicine
DX: E11.22 Type 2 diabetes mellitus with diabetic chronic kidney disease (principal); N18.3 Chronic kidney disease, stage 3 (moderate); E78.5 Hyperlipidemia, unspecified; E21.3 Hyperparathyroidism, unspecified; R80.9 Proteinuria, unspecified; D63.1 Anemia in chronic kidney disease
CPT/HCPCS: 36415; 80053; 81001; 82043; 82570; 83036; 83970; 84100; 84156; 84550; 85025

== ENCOUNTER → 2019-10-05 | Outpatient (CLI) | payer MEDICARE ==
[2019-10-05 13:02] LABS: BUN/Creatinine Ratio 27.4; Calcium 8.6 mg/dL (8.5-10.1); Potassium 4.5 mmol/L (3.5-5.1)
== END | disposition home or self-care (01) ==
LOC: LAB 11:12
PROVIDERS: ATTEND Internal Medicine
DX: E11.9 Type 2 diabetes mellitus without complications (principal)
CPT/HCPCS: 36415; 80048

== ENCOUNTER 2019-10-22 13:09 | Inpatient (IN) | payer MEDICARE, MEDICAID ==
[~2019-10-22] VITALS: Ht 167.6 cm; Wt 93.4 kg
[~2019-10-22 13:09] MED LIST changes: -LATA0.0015 EACHEYE; +LATA0.0019 EACHEYE; -PRA25T PO; +PRAM0.252 PO
[2019-10-22 13:57] LABS: Basophils # (auto) 0.1 uL; Basophils % (auto) 0.9 % (0.0-2.0); Eosinophils # (auto) 0.2 uL; Eosinophils % (auto) 2.9 % (0.0-7.0); Hematocrit 35.8 % (36.0-46.0); Hemoglobin 12.3 g/dL (12.2-16.2); Lymphocytes # (auto) 1.4 uL; Lymphocytes % (auto) 17.5 % (10.0-50.0); Mean Corpuscular Hemoglobin 30.8 pg (28.0-32.0); Mean Corpuscular Hgb Conc. 34.3 g/dL (32.0-36.0); Mean Corpuscular Volume 89.8 fL (80.0-100.0); Monocytes # (auto) 0.5 uL; Monocytes % (auto) 5.7 % (0.0-12.0); Neutrophils # (auto) 5.9 uL; Nucleated Red Blood Cells % 0.1 %; Platelet Count (auto) 153 10^3/uL (140-450); Red Blood Cells 3.98 10^6/uL (4.0-5.20)
[2019-10-22 14:18] LABS: Albumin 3.4 g/dL (3.4-5.0); Calcium 8.8 mg/dL (8.5-10.1); Potassium 4.1 mmol/L (3.5-5.1)
[2019-10-22 14:27] LABS: BUN/Creatinine Ratio 22.5; Bilirubin, Total 0.3 mg/dL (0.2-1.0); Total Protein 7.1 g/dL (6.4-8.2)
[2019-10-22] MEDS ORDERED: HYDROmorphone HCL 2 MG/ML VL IV ONE (15:00)
[2019-10-22] MEDS ORDERED: ONDANSETRON HCL 4 MG/2 ML VIAL IV ONE (15:00)
[2019-10-22] MEDS ORDERED: HYDROcodone-ACET 7.5/325MG TAB PO ONE (15:15)
[2019-10-22] MEDS ORDERED: HYDROcodone-ACET 5/325MG TAB PO PRN (17:45)
[2019-10-22] MEDS ORDERED: ACETAMINOPHEN 500 MG TAB PO PRN (17:45)
[2019-10-22] MEDS ORDERED: DEXTROSE (50%) 50ML SYRG IV PRN (17:45)
[2019-10-22] MEDS ORDERED: ONDANSETRON HCL 4 MG/2 ML VIAL IV PRN (17:45)
[2019-10-22] MEDS ORDERED: NITROGLYCERIN 0.4 MG SL TAB SL PRN (17:45)
[2019-10-22] MEDS ORDERED: ATORVASTATIN 20 MG TAB PO SCH (18:00)
[2019-10-22] MEDS: RIVAROXABAN 20 MG TAB PO SCH (18:37)
[2019-10-22 21:29] VITALS: BP 125/53
[2019-10-22] MEDS: LATANOPROST 0.005 % OPTH(EYE) SOL 2.5ML EACHEYE SCH (21:59)
[2019-10-22 22:00] VITALS: BP 125/53
[2019-10-22] MEDS: InsuLIN REG 1unit/0.01ml Soln (100units/ml) SC SCH (22:00)
[2019-10-22] MEDS: ACCU-CHEK COMFORT CURVE STRIP VI SCH (22:00)
[2019-10-22] MEDS: ATORVASTATIN 20 MG TAB PO SCH (22:00)
[2019-10-23 01:42] LABS: Urine Bacteria NONE SEEN /hpf (None Seen); Urine Blood Negative /uL (Negative); Urine Specific Gravity 1.008 (1.001-1.035); Urine WBC 4 /hpf (0 - 5)
[2019-10-23 05:00] VITALS: BP 144/99
[2019-10-23] MEDS: INSULIN LANTUS (GLARGINE) 1 /0.01ml (100units/ml) SC SCH (06:45)
[2019-10-23] MEDS: ACCU-CHEK COMFORT CURVE STRIP VI SCH ×4 (06:45→22:29)
[2019-10-23] MEDS: InsuLIN REG 1unit/0.01ml Soln (100units/ml) SC SCH ×4 (06:45→22:30)
[2019-10-23 09:00] VITALS: BP 166/69
[2019-10-23] MEDS: amLODIPine BESYLATE 5 MG TAB PO SCH (09:11)
[2019-10-23] MEDS: ALLOPURINOL 100 MG TAB PO SCH (09:11)
[2019-10-23] MEDS: FAMOTIDINE 20 MG TAB PO SCH (09:12)
[2019-10-23] MEDS: LISINOPRIL 10 MG TAB PO SCH (09:13)
[2019-10-23 12:48] LABS: Folate (Folic Acid) > 24.00 ng/mL (5.38-24)
[2019-10-23 13:00] VITALS: BP 152/55
[2019-10-23] MEDS: RIVAROXABAN 20 MG TAB PO SCH (17:35)
[2019-10-23 22:00] VITALS: BP 144/76
[2019-10-23] MEDS: LATANOPROST 0.005 % OPTH(EYE) SOL 2.5ML EACHEYE SCH (22:29)
[2019-10-23] MEDS: ATORVASTATIN 20 MG TAB PO SCH (22:29)
[2019-10-24 05:30] VITALS: BP 154/65
[2019-10-24] MEDS: ACCU-CHEK COMFORT CURVE STRIP VI SCH ×2 (06:38→12:09)
[2019-10-24] MEDS: InsuLIN REG 1unit/0.01ml Soln (100units/ml) SC SCH ×2 (06:39→11:30)
[2019-10-24] MEDS: INSULIN LANTUS (GLARGINE) 1 /0.01ml (100units/ml) SC SCH (06:39)
[2019-10-24 09:00] VITALS: BP 138/100
[2019-10-24 09:09] VITALS: BP 138/100
[2019-10-24] MEDS: FAMOTIDINE 20 MG TAB PO SCH (09:40)
[2019-10-24] MEDS: LISINOPRIL 10 MG TAB PO SCH (09:41)
[2019-10-24] MEDS: ALLOPURINOL 100 MG TAB PO SCH (09:41)
[2019-10-24] MEDS: amLODIPine BESYLATE 5 MG TAB PO SCH (09:41)
== END 2019-10-24 12:34 | disposition home or self-care (01) | DRG 637 ==
LOC: EDBD 13:09 → ER 13:09 → TELE 13:10 → TELE-WESTW 22:10
PROVIDERS: ADMIT Nurse Practitioner Acute Care; ATTEND Internal Medicine
DX: E11.649 Type 2 diabetes mellitus with hypoglycemia without coma (principal); G93.41 Metabolic encephalopathy; E11.22 Type 2 diabetes mellitus with diabetic chronic kidney disease; N18.3 Chronic kidney disease, stage 3 (moderate); E66.01 Morbid (severe) obesity due to excess calories; I49.5 Sick sinus syndrome; E11.319 Type 2 diabetes mellitus with unspecified diabetic retinopathy without macular edema; E78.5 Hyperlipidemia, unspecified; H54.8 Legal blindness, as defined in USA; I12.9 Hypertensive chronic kidney disease with stage 1 through stage 4 chronic kidney disease, or unspecified chronic kidney disease; Z79.01 Long term (current) use of anticoagulants; Z79.4 Long term (current) use of insulin; Z82.49 Family history of ischemic heart disease and other diseases of the circulatory system; Z86.73 Personal history of transient ischemic attack (TIA), and cerebral infarction without residual deficits; Z95.0 Presence of cardiac pacemaker; Z95.1 Presence of aortocoronary bypass graft; Z90.49 Acquired absence of other specified parts of digestive tract; Z83.3 Family history of diabetes mellitus; G43.909 Migraine, unspecified, not intractable, without status migrainosus; Z98.51 Tubal ligation status; E11.40 Type 2 diabetes mellitus with diabetic neuropathy, unspecified; Z68.32 Body mass index [BMI] 32.0-32.9, adult; Z88.1 Allergy status to other antibiotic agents; Z88.5 Allergy status to narcotic agent; Z88.2 Allergy status to sulfonamides; Z88.8 Allergy status to other drugs, medicaments and biological substances
CPT/HCPCS: 36415; 70450; 80053; 81001; 82607; 82746; 82962; 83735; 84443; 84484; 85025; 87081; 93005; G0378; J1815; J2405

== ENCOUNTER 2019-10-26 09:42 | Emergency (ER) | payer MEDICARE, MEDICAID ==
[~2019-10-26] VITALS: Ht 167.6 cm; Wt 90.7 kg
[~2019-10-26 09:42] MED LIST changes: +LATA0.0015 EACHEYE; -LATA0.0019 EACHEYE; +PRA25T PO; -PRAM0.252 PO; -RANI150C11 PO
[2019-10-26 09:54] VITALS: BP 170/51
[2019-10-26 10:28] LABS: Basophils # (auto) 0.1 uL; Basophils % (auto) 1.3 % (0.0-2.0); Eosinophils # (auto) 0.3 uL; Eosinophils % (auto) 4.1 % (0.0-7.0); Hemoglobin 12.6 g/dL (12.2-16.2); Lymphocytes # (auto) 1.5 uL; Lymphocytes % (auto) 19.5 % (10.0-50.0); Mean Corpuscular Hgb Conc. 34.1 g/dL (32.0-36.0); Mean Corpuscular Volume 90.9 fL (80.0-100.0); Monocytes # (auto) 0.4 uL; Monocytes % (auto) 5.3 % (0.0-12.0); Neutrophils # (auto) 5.4 uL; Neutrophils % (auto) 69.8 % (37.0-80.0); Platelet Count (auto) 156 10^3/uL (140-450); Red Blood Cells 4.07 10^6/uL (4.0-5.20); Red Cell Distribution Width 13.9 % (11.8-14.3); White Blood Cell 7.8 10^3/uL (4.4-10.8)
[2019-10-26 10:51] LABS: Potassium 5.5 mmol/L (3.5-5.1)
[2019-10-26 10:58] LABS: Albumin 3.6 g/dL (3.4-5.0); BUN/Creatinine Ratio 20.6; Bilirubin, Total 0.5 mg/dL (0.2-1.0); Calcium 9.1 mg/dL (8.5-10.1); Total Protein 7.5 g/dL (6.4-8.2)
== END 2019-10-26 12:00 | disposition left against medical advice (07) ==
LOC: ER 09:42
DX: E11.65 Type 2 diabetes mellitus with hyperglycemia (principal); E11.22 Type 2 diabetes mellitus with diabetic chronic kidney disease; I12.0 Hypertensive chronic kidney disease with stage 5 chronic kidney disease or end stage renal disease; N18.6 End stage renal disease; E78.5 Hyperlipidemia, unspecified; Z99.2 Dependence on renal dialysis; Z88.0 Allergy status to penicillin; Z88.1 Allergy status to other antibiotic agents; Z88.2 Allergy status to sulfonamides; Z79.899 Other long term (current) drug therapy; Z86.73 Personal history of transient ischemic attack (TIA), and cerebral infarction without residual deficits; Z98.51 Tubal ligation status
CPT/HCPCS: 36415; 80053; 82962; 85025; 93005

== ENCOUNTER → 2019-10-30 | Outpatient (CLI) | payer MEDICARE, MEDICAID ==
[2019-10-30 08:55] LABS: Potassium 4.4 mmol/L (3.5-5.1)
[2019-10-30 09:04] LABS: BUN/Creatinine Ratio 26.6; Calcium 8.9 mg/dL (8.5-10.1)
== END | disposition home or self-care (01) ==
LOC: LAB 08:06
PROVIDERS: ATTEND Internal Medicine
DX: E11.9 Type 2 diabetes mellitus without complications (principal); I10 Essential (primary) hypertension
CPT/HCPCS: 36415; 80048; 80061

== ENCOUNTER → 2019-12-01 | Outpatient (CLI) | payer MEDICARE, MEDICAID ==
[~2019-12-01] MED LIST changes: -LATA0.0015 EACHEYE; +LATA0.0019 EACHEYE; -PRA25T PO; +PRAM0.252 PO
== END | disposition home or self-care (01) ==
LOC: LAB 16:09
PROVIDERS: ATTEND Internal Medicine
DX: Z12.11 Encounter for screening for malignant neoplasm of colon (principal)
CPT/HCPCS: 82270

== ENCOUNTER → 2019-12-21 | Outpatient (CLI) | payer MEDICARE, MEDICAID ==
[~2019-12-21] MED LIST changes: +ALPR0.254 PO; +ASCO500T11 PO; +CHOL20007 PO; +DONE5TAB31 PO; +HYDR50TA15 PO; +INSUINJ37 SC; +LISI-648 PO; -LISI10TA6 PO; +MET50T PO; +MULT-228 PO
[2019-12-21 14:12] LABS: Albumin 3.1 g/dL (3.4-5.0); Calcium 8.1 mg/dL (8.5-10.1); Potassium 4.1 mmol/L (3.5-5.1); Uric Acid 5.6 mg/dL (2.6-6.0)
[2019-12-21 14:15] LABS: BUN/Creatinine Ratio 20.1; Bilirubin, Total 0.3 mg/dL (0.2-1.0); Phosphorus 3.6 mg/dL (2.5-4.90); Total Protein 6.5 g/dL (6.4-8.2)
== END | disposition home or self-care (01) ==
LOC: LAB 12:54
PROVIDERS: ATTEND Internal Medicine Nephrology
DX: E11.22 Type 2 diabetes mellitus with diabetic chronic kidney disease (principal); N18.3 Chronic kidney disease, stage 3 (moderate); R80.9 Proteinuria, unspecified; M10.9 Gout, unspecified; E56.9 Vitamin deficiency, unspecified; E83.39 Other disorders of phosphorus metabolism
CPT/HCPCS: 36415; 80053; 82043; 82306; 82570; 83036; 84100; 84550

== ENCOUNTER 2019-12-24 17:52 | Inpatient (IN) | payer MEDICARE, MEDICAID ==
[~2019-12-24] VITALS: Ht 172.7 cm; Wt 89.8 kg
[~2019-12-24 17:52] MED LIST changes: -ALPR0.254 PO; -ASCO500T11 PO; -CHOL20007 PO; -DONE5TAB31 PO; -HYDR50TA15 PO; -INSUINJ37 SC; -LISI-648 PO; +LISI10TA6 PO; -MET50T PO; -MULT-228 PO
[2019-12-24 18:49] LABS: Basophils # (auto) 0.1 10 ^3/uL (0-0.2); Basophils % (auto) 0.9 % (0.0-2.0); Eosinophils # (auto) 0.2 10 ^3/uL (0-0.8); Eosinophils % (auto) 2.8 % (0.0-7.0); Hematocrit 40.4 % (36.0-46.0); Hemoglobin 13.6 g/dL (12.2-16.2); Lymphocytes # (auto) 1.3 10 ^3/uL (0.4-5.4); Lymphocytes % (auto) 16.7 % (10.0-50.0); Mean Corpuscular Hemoglobin 30.1 pg (28.0-32.0); Mean Corpuscular Hgb Conc. 33.7 g/dL (32.0-36.0); Mean Corpuscular Volume 89.3 fL (80.0-100.0); Monocytes # (auto) 0.5 10 ^3/uL (0-1.3); Monocytes % (auto) 6.4 % (0.0-12.0); Neutrophils # (auto) 5.7 10 ^3/uL (1.6-8.6); Neutrophils % (auto) 73.2 % (37.0-80.0); Platelet Count (auto) 139 10^3/uL (140-450); Red Blood Cells 4.53 10^6/uL (4.0-5.20); Red Cell Distribution Width 13.7 % (11.8-14.3); White Blood Cell 7.8 10^3/uL (4.4-10.8)
[2019-12-24 19:01] LABS: Albumin 3.1 g/dL (3.4-5.0); Calcium 8.6 mg/dL (8.5-10.1); Magnesium 1.7 mg/dL (1.6-2.6); Potassium 3.7 mmol/L (3.5-5.1)
[2019-12-24 19:06] LABS: Bilirubin, Total 0.3 mg/dL (0.2-1.0); Total Protein 6.5 g/dL (6.4-8.2)
[2019-12-24] MEDS ORDERED: SODIUM CHLORIDE 0.9% 1,000 ML IV ONE (19:45)
[2019-12-24] MEDS ORDERED: ONDANSETRON HCL 4 MG/2 ML VIAL IV PRN (19:45)
[2019-12-24] MEDS ORDERED: NITROGLYCERIN 0.4 MG SL TAB SL PRN ×3 (19:45)
[2019-12-24] MEDS ORDERED: MORPHINE SULF INJ 2 MG/ML SYRINGE 1ML IV PRN ×2 (19:45)
[2019-12-24] MEDS ORDERED: DEXTROSE (50%) 50ML SYRG IV PRN (19:45)
[2019-12-24] MEDS ORDERED: ZOLPIDEM TARTRATE 5 MG TAB PO PRN (19:45)
[2019-12-24 20:06] VITALS: BP 177/75
--- NOTE | 2019-12-24 20:06 | NUR ---
Telemetry admit from ER INOCENTE KILLIAN admitted to Telemetry unit after SBAR received. Patient oriented to KATHY RODRIGUEZ RN primary RN, unit, room, bed, and unit policies regarding patient care and visiting hours. Patient now on continuous telemetry monitoring, tele box # 63 and telemetry reading on arrival to unit is sinus bradycardia 50bpm. Patient placed on bedside oxygen, weighed by bedscale and encouraged to call if they need something. All questions and concerns addressed, patient verbalized understanding.
[2019-12-24 20:34] VITALS: BP 157/63
--- NOTE | 2019-12-24 20:34 | NUR ---
PATIENT REPORTED SHE CAN NOT RECALL HOME MEDICATIONS OR PREFERRED PHARMACY WILL ENDORSE CARE TO DAYSHIFT RN. THIS RN CALLED PATIENT SON NO CALL BACK.
--- NOTE | 2019-12-24 21:00 | NUR ---
CALLED TIFF PER PATIENT HER SON, TO RECEIVE FURTHER INFORMATION FOR ADMISSION PAPERWORK. PATIENT IS ALERT AND ORIENTATED TIMES 3.PATIENT DOES NOT RECALL PHONE NUMBER. PHONE NUMBER ON PAST MEDICAL RECORD OF SON TIFF IS [phone]. NO ANSWER.
--- NOTE | 2019-12-24 21:39 | NUR ---
patient reported headache 11/09. no pain medications scheduled . patient requesting tylenol. vending route driver yolette notified sbar report given new orders for tylenol 650mg po times one. VOUCHER EXAMINER notified of patient blood pressure 177/75 rechecked 157/63, heart rate 51 and metoprolol scheduled, no other medications scheduled for blood pressure. per vending route driver " just hold medication." orders read back and verified by VOUCHER EXAMINER no new orders for blood pressure or heart rate.
[2019-12-24] MEDS: InsuLIN REG 1unit/0.01ml Soln (100units/ml) SC SCH (22:00)
[2019-12-24] MEDS: ACCU-CHEK COMFORT CURVE STRIP VI SCH (22:00)
[2019-12-24] MEDS: METOPROLOL TARTRATE 25 MG TAB PO SCH (22:00)
[2019-12-24] MEDS ORDERED: ACETAMINOPHEN 325 MG TAB PO ONE (22:15)
[2019-12-24] MEDS: ATORVASTATIN 20 MG TAB PO SCH (22:28)
--- NOTE | 2019-12-24 23:30 | NUR ---
PAIN REASSESSMENT 0/10 PAIN
[2019-12-25] MEDS ORDERED: hydrALAZINE HCL 20 MG/ML VL IV PRN (02:45)
[2019-12-25] MEDS ORDERED: SOD CHL 0.45% 1,000 ML IV SCH (02:45)
[2019-12-25] MEDS ORDERED: POLYSOL2 EACHEYE (02:53)
[2019-12-25] MEDS ORDERED: ALPR0.254 PO (02:53)
[2019-12-25] MEDS ORDERED: HYDR50TA15 PO (02:53)
[2019-12-25] MEDS ORDERED: CHOL20007 PO (02:53)
[2019-12-25] MEDS ORDERED: INSUINJ37 SC (02:53)
[2019-12-25] MEDS ORDERED: MET50T PO (02:53)
[2019-12-25] MEDS ORDERED: DEXT20CA PO (02:53)
[2019-12-25 05:00] VITALS: BP 184/59
[2019-12-25 05:25] VITALS: BP 167/55
[2019-12-25] MEDS ORDERED: FUROSEMIDE 20 MG/2 ML VIAL IV SCH (06:00)
--- NOTE | 2019-12-25 06:19 | NUR ---
bs 34 recheck 42. BS protocol initiated.
--- NOTE | 2019-12-25 06:44 | NUR ---
IV insertion/IV removal IV DC'd due to patient pulling on Iv. iv dc'd with clean sterile technique, catheter fully intact. Pressure dressing applied to site. Patient tolerated well. IV access obtained, via clean sterile technique by inserting 22 gauge catheter at left upper arm after 1 attempt. IV secured properly. No trauma to site. Patient tolerated well.
--- NOTE | 2019-12-25 06:50 | NUR ---
recheck BS 117 denies any symptoms
[2019-12-25] MEDS: ACCU-CHEK COMFORT CURVE STRIP VI SCH ×4 (06:53→21:39)
[2019-12-25] MEDS ORDERED: InsuLIN REG 1unit/0.01ml Soln (100units/ml) SC SCH (07:00)
--- NOTE | 2019-12-25 07:25 | NUR ---
report given to dayshift rn. patient denies sob distress or pain. informed rn blood sugar recheck was 117. fall precautions in place. call light within reach. bed alarm on. bed in low position
[2019-12-25 07:56] LABS: Basophils # (auto) 0.1 10 ^3/uL (0-0.2); Basophils % (auto) 1.3 % (0.0-2.0); Eosinophils # (auto) 0.2 10 ^3/uL (0-0.8); Eosinophils % (auto) 3.1 % (0.0-7.0); Hematocrit 36.8 % (36.0-46.0); Hemoglobin 12.7 g/dL (12.2-16.2); Lymphocytes # (auto) 1.3 10 ^3/uL (0.4-5.4); Lymphocytes % (auto) 23.3 % (10.0-50.0); Mean Corpuscular Hemoglobin 30.8 pg (28.0-32.0); Mean Corpuscular Hgb Conc. 34.5 g/dL (32.0-36.0); Mean Corpuscular Volume 89.4 fL (80.0-100.0); Monocytes # (auto) 0.4 10 ^3/uL (0-1.3); Neutrophils # (auto) 3.6 10 ^3/uL (1.6-8.6); Neutrophils % (auto) 64.3 % (37.0-80.0); Platelet Count (auto) 147 10^3/uL (140-450); Red Blood Cells 4.12 10^6/uL (4.0-5.20); Red Cell Distribution Width 13.7 % (11.8-14.3); White Blood Cell 5.6 10^3/uL (4.4-10.8)
[2019-12-25 08:18] LABS: Albumin 2.8 g/dL (3.4-5.0); BUN/Creatinine Ratio 21.9; Calcium 8.2 mg/dL (8.5-10.1); Phosphorus 3.7 mg/dL (2.5-4.90); Potassium 3.4 mmol/L (3.5-5.1)
[2019-12-25 08:20] LABS: Bilirubin, Total 0.4 mg/dL (0.2-1.0); Total Protein 5.8 g/dL (6.4-8.2)
--- NOTE | 2019-12-25 08:57 | NUR ---
Urine sent to Lab.
[2019-12-25 09:06] VITALS: BP 146/62
[2019-12-25 09:12] LABS: Urine Bacteria MOD /hpf (None Seen); Urine Blood Negative /uL (Negative); Urine Specific Gravity 1.008 (1.001-1.035); Urine WBC 93 /hpf (0 - 5)
[2019-12-25] MEDS: DOCUSATE SOD 100 MG CAP PO SCH (10:00)
[2019-12-25] MEDS ORDERED: ENOXAPARIN SOD 40 MG/0.4 ML SYRINGE SC SCH (10:00)
[2019-12-25] MEDS: ASPirin 81 mg TAB PO SCH (10:28)
[2019-12-25] MEDS: METOPROLOL TARTRATE 25 MG TAB PO SCH ×2 (10:30→21:34)
[2019-12-25] MEDS: PRAMIPEXOLE DIHYDROCHLORIDE MO 0.25 MG TAB PO SCH ×2 (10:30→21:34)
[2019-12-25] MEDS: amLODIPine BESYLATE 5 MG TAB PO SCH (10:31)
[2019-12-25] MEDS: LISINOPRIL 10 MG TAB PO SCH (10:31)
[2019-12-25] MEDS: ALLOPURINOL 100 MG TAB PO SCH (10:32)
--- NOTE | 2019-12-25 11:45 | NUR ---
INFORMED MD OF PATIENT'S BLOOD SUGAR LEVEL OF 211 AND THIS IS THE FIRST TIME PATIENT IS GETTING INSULIN AT HOSPITAL AND THERE IS NO Hgb A1C. MD IS AWARE AND ORDERED Hgb A1C. WILL AWAIT RESULTS.
--- NOTE | 2019-12-25 11:46 | NUR ---
PER MD TENA HOLD INSULIN UNTIL Hgb A1C IS BACK.
--- NOTE | 2019-12-25 12:12 | NUR ---
NURSING REPORTS PATIENT IS TOLERATING ALL PILLS AND REGULAR TEXTURE DIET. NO SWALLOW EVALUATION AT THIS TIME.
--- NOTE | 2019-12-25 12:45 | NUR ---
MD TENA AT BEDSIDE UPDATED MD ON PATIENT'S STATUS, MD IS AWARE. PER MD STOP IV FLUIDS, HOLD INSULIN RIGHT NOW AND RECHECK AT 1700 AND GIVE INSULIN PER PROTOCOL, ISAAC LASIX, ORDER MILD SLIDING SCALE, URINE AND BLOOD CULTURE. WILL FOLLOW THROUGH WITH ORDERS. AWAITING PHARMACY TO CALL FOR RECOMMENDED ANTIBIOTIC FOR UTI. WILL INFORM MD TENA.
[2019-12-25 13:05] VITALS: BP 149/76
--- NOTE | 2019-12-25 14:05 | NUR ---
INFORMED MD TENA OF PHARMACY'S RECOMMENDATION OF ROCEPHIN. IS AWARE AND WANTS ROCEPHIN ORDERED. WILL FOLLOW THROUGH WITH ORDERS.
--- NOTE | 2019-12-25 15:12 | NUR ---
IV insertion IV access obtained, via clean sterile technique by inserting 22 gauge catheter at RFA after 3 attempts. IV secured properly. No trauma to site. Patient tolerated well. IV put in by devulcanizer charger Norma
[2019-12-25] MEDS: cefTRIAXone 1GM/50ML D5W 50 ML IV SCH (15:21)
[2019-12-25 16:55] VITALS: BP 130/39
[2019-12-25] MEDS: RIVAROXABAN 20 MG TAB PO SCH (17:09)
[2019-12-25] MEDS: InsuLIN REG 1unit/0.01ml Soln (100units/ml) SC SCH ×3 (17:11→21:39)
[2019-12-25 18:40] LABS: Protein, Urine 96.3 mg/dL (0.0-11.9)
--- NOTE | 2019-12-25 19:03 | NUR ---
CLOSING SHIFT NOTE ENDORSED CARE TO AUDITING MANAGER RN KATHY. PATIENT HAS NO S/S OF DISTRESS/SOB OR PAIN AT THIS TIME.
--- NOTE | 2019-12-25 19:25 | NUR ---
Opening Shift Note Assumed care of patient, awake and alert times 3. No S/S of distress/SOB or pain. Instructed on POC and to call for assist PRN, will continue to monitor for changes Q1hr and PRN. bed in low position call light within reach. bed alarm on fall precaution in place.
[2019-12-25] MEDS: ATORVASTATIN 20 MG TAB PO SCH (21:34)
[2019-12-25] MEDS: LATANOPROST 0.005 % OPTH(EYE) SOL 2.5ML EACHEYE SCH (21:34)
[2019-12-25 21:39] VITALS: BP 105/57
[2019-12-26 05:07] VITALS: BP 138/59
[2019-12-26] MEDS: ACCU-CHEK COMFORT CURVE STRIP VI SCH ×4 (05:48→22:46)
[2019-12-26] MEDS: InsuLIN REG 1unit/0.01ml Soln (100units/ml) SC SCH ×5 (05:54→22:58)
--- NOTE | 2019-12-26 06:51 | NUR ---
patient rounds patient is in bed sleeping. no signs of sob distress or pain. call light within reach. fall precautions in place.
--- NOTE | 2019-12-26 07:18 | NUR ---
ASSUMED CARE Assumed care of patient, awake and alert times 3. No S/S of distress/SOB or pain. Instructed on POC and to call for assist PRN, will continue to monitor for changes. Bed in low position, locked, call light within reach. Fall precautions in place.
--- NOTE | 2019-12-26 07:30 | NUR ---
REPORT GIVEN TO AMANDA DEL RIO
[2019-12-26 07:31] LABS: Albumin 2.7 g/dL (3.4-5.0); Calcium 8.4 mg/dL (8.5-10.1); Potassium 4.1 mmol/L (3.5-5.1)
[2019-12-26 07:35] LABS: BUN/Creatinine Ratio 24.2; Bilirubin, Total 0.4 mg/dL (0.2-1.0); Total Protein 5.7 g/dL (6.4-8.2)
[2019-12-26 08:28] VITALS: BP 160/71
[2019-12-26] MEDS: cefTRIAXone 1GM/50ML D5W 50 ML IV SCH (09:04)
[2019-12-26] MEDS: ALLOPURINOL 100 MG TAB PO SCH (09:04)
[2019-12-26] MEDS: PRAMIPEXOLE DIHYDROCHLORIDE MO 0.25 MG TAB PO SCH (09:04)
[2019-12-26] MEDS: amLODIPine BESYLATE 5 MG TAB PO SCH (09:05)
[2019-12-26] MEDS: METOPROLOL TARTRATE 25 MG TAB PO SCH ×2 (09:06→22:45)
[2019-12-26] MEDS: ASPirin 81 mg TAB PO SCH (09:07)
[2019-12-26] MEDS: LISINOPRIL 10 MG TAB PO SCH (09:07)
[2019-12-26] MEDS: DOCUSATE SOD 100 MG CAP PO SCH (09:08)
--- NOTE | 2019-12-26 10:50 | NUR ---
Patient anxious and crying Patient requesting anxiety medication. Patient crying at bedside, patient states " I feel so bad and so anxious, I don't normally have anxiety but being in the hospital and not being able to get a hold of my son is really getting to me". Emotional support provided to patient by this RN. Will notify MD of patients request for anxiety medication.
[2019-12-26] MEDS ORDERED: LISINOPRIL 10 MG TAB PO SCH (11:00)
--- NOTE | 2019-12-26 11:00 | NUR ---
at bedside Dr. Wilfredo Cabral at bedside, patient updated on POC. New orders received to stop Cardiac 2GM diet and start Consistent Carbohydrate diet. New order received for Ativan 1mg PO TID PRN. Will implement orders.
[2019-12-26] MEDS: LORazepam 0.5 MG TAB PO PRN (12:20)
[2019-12-26 13:01] VITALS: BP 145/69
[2019-12-26] MEDS ORDERED: LISINOPRIL 10 MG TAB PO ONE (14:00)
[2019-12-26] MEDS ORDERED: ATORVASTATIN 20 MG TAB PO SCH ×2 (14:45→22:00)
[2019-12-26] MEDS ORDERED: PRAMIPEXOLE DIHYDROCHLORIDE MO 0.25 MG TAB PO SCH ×2 (14:45→22:00)
--- NOTE | 2019-12-26 16:28 | NUR ---
Nutrition Assessment Notes Please refer to link for full assessment notes. Est Energy needs: 6290-7570 kcals (20-23 kcal/kgAdjBW) Est Protein needs: 81-89 gms/day (1.0-1.1 gm/kgAdjBW) Will continue to monitor and reassess prn. Addendum: 12/26/19 at [address] Amended: Links added.
[2019-12-26 17:25] VITALS: BP 117/80
[2019-12-26] MEDS: RIVAROXABAN 20 MG TAB PO SCH (18:09)
--- NOTE | 2019-12-26 19:20 | NUR ---
Opening Shift Note Assumed care of patient, awake and alert. No S/S of distress/SOB or pain. Safety measures in place bed in lowest position, side rails up x2, call light within reach. Instructed on POC and to call for assist PRN, will continue to monitor for changes Q1hr and PRN.
[2019-12-26 22:00] VITALS: BP 134/69
[2019-12-26] MEDS: LATANOPROST 0.005 % OPTH(EYE) SOL 2.5ML EACHEYE SCH (22:00)
[2019-12-26 22:08] LABS: % Iron Saturation 22.8 % (15-50)
[2019-12-27 05:00] VITALS: BP 120/70
[2019-12-27 06:07] LABS: Albumin 2.7 g/dL (3.4-5.0); BUN/Creatinine Ratio 22.7; Calcium 8.6 mg/dL (8.5-10.1); Potassium 4.3 mmol/L (3.5-5.1)
[2019-12-27 06:22] LABS: Bilirubin, Total 0.4 mg/dL (0.2-1.0); Total Protein 5.8 g/dL (6.4-8.2)
[2019-12-27] MEDS: ACCU-CHEK COMFORT CURVE STRIP VI SCH ×2 (06:33→11:30)
[2019-12-27] MEDS: InsuLIN REG 1unit/0.01ml Soln (100units/ml) SC SCH ×2 (06:37→11:30)
--- NOTE | 2019-12-27 07:20 | NUR ---
ASSUMED CARE Assumed care of patient, awake and alert times 4. No S/S of distress/SOB or pain. Instructed on POC and to call for assist PRN, will continue to monitor for changes. Bed in low position, locked, call light within reach. Fall precautions in place.
[2019-12-27 09:08] VITALS: BP 161/65
--- NOTE | 2019-12-27 09:15 | NUR ---
IV removal Infiltration and redness noted. Patient complained of burning pain when IV was flushed. Right forearm 22G IV DC'd with clean sterile technique, catheter fully intact. Pressure dressing applied to site. Patient tolerated well. Patient refusing new IV insertion. Patient states "I'm getting discharged today and I don't want to be pocked." Patient educated on risks of not having an IV present at all times while hospitalized, patient verbalized understanding but continued to refuse.
[2019-12-27] MEDS: cefTRIAXone 1GM/50ML D5W 50 ML IV SCH ×2 (09:19→09:30)
[2019-12-27] MEDS: ALLOPURINOL 100 MG TAB PO SCH (09:22)
[2019-12-27] MEDS: amLODIPine BESYLATE 5 MG TAB PO SCH (09:22)
[2019-12-27] MEDS: ASPirin 81 mg TAB PO SCH (09:23)
[2019-12-27] MEDS: METOPROLOL TARTRATE 25 MG TAB PO SCH (09:23)
[2019-12-27] MEDS: DOCUSATE SOD 100 MG CAP PO SCH (09:23)
--- NOTE | 2019-12-27 09:30 | NUR ---
Medication held 0900 scheduled IV antibiotic Rocephin held. No IV access in place. Patient refusing new IV access. is aware.
[2019-12-27] MEDS ORDERED: LISINOPRIL 20 MG TAB PO SCH (10:00)
[2019-12-27] MEDS: LORazepam 0.5 MG TAB PO PRN (12:26)
[2019-12-27 12:54] VITALS: BP 137/73
--- NOTE | 2019-12-27 14:20 | NUR ---
Discharge instructions given as ordered. Encourage to follow up with PMD as instructed. All questions and concerns addressed. Patient verbalized understanding. Telemetry unit returned to ICU. Patient taken to vehicle via wheelchair with all personal belongings, accompanied by this RN. Patient family awaiting on lobby, all questions and concerns regarding discharge addresses, education of discharge also given. No distress noted at time of departure.
== END 2019-12-27 14:15 | disposition home or self-care (01) | DRG 70 ==
LOC: EDBD 17:52 → ER 17:52 → TELE 17:53 → TELE-WESTW 20:35
PROVIDERS: ADMIT Hospitalist; ATTEND Family Medicine
DX: G93.41 Metabolic encephalopathy (principal); I50.41 Acute combined systolic (congestive) and diastolic (congestive) heart failure; N17.0 Acute kidney failure with tubular necrosis; N18.6 End stage renal disease; N39.0 Urinary tract infection, site not specified; I13.2 Hypertensive heart and chronic kidney disease with heart failure and with stage 5 chronic kidney disease, or end stage renal disease; E11.649 Type 2 diabetes mellitus with hypoglycemia without coma; E87.6 Hypokalemia; E11.21 Type 2 diabetes mellitus with diabetic nephropathy; E11.319 Type 2 diabetes mellitus with unspecified diabetic retinopathy without macular edema; F01.50 Vascular dementia, unspecified severity, without behavioral disturbance, psychotic disturbance, mood disturbance, and anxiety; E11.22 Type 2 diabetes mellitus with diabetic chronic kidney disease; E78.5 Hyperlipidemia, unspecified; F12.90 Cannabis use, unspecified, uncomplicated; F17.200 Nicotine dependence, unspecified, uncomplicated; G25.81 Restless legs syndrome; F41.9 Anxiety disorder, unspecified; G20 Parkinson's disease; I25.10 Atherosclerotic heart disease of native coronary artery without angina pectoris; Z79.01 Long term (current) use of anticoagulants; Z79.4 Long term (current) use of insulin; Z79.82 Long term (current) use of aspirin; Z79.899 Other long term (current) drug therapy; Z82.49 Family history of ischemic heart disease and other diseases of the circulatory system; Z83.3 Family history of diabetes mellitus; Z95.0 Presence of cardiac pacemaker; Z95.1 Presence of aortocoronary bypass graft
CPT/HCPCS: 36415; 70450; 71045; 76775; 80053; 81001; 82306; 82570; 82728; 82962; 83036; 83540; 83550; 83735; 83970; 84100; 84156; 84300; 84484; 84550; 85025; 87040; 87086; 97163; G0378; J0696; J1815

== ENCOUNTER → 2019-12-29 | Outpatient (CLI) | payer MEDICARE, MEDICAID ==
[~2019-12-29] MED LIST changes: +ALPR0.254 PO; +ASCO500T11 PO; +CHOL20007 PO; +DONE5TAB31 PO; +HYDR50TA15 PO; +INSUINJ37 SC; +MET50T PO; +MULT-228 PO
== END | disposition home or self-care (01) ==
LOC: Rad HDHVI 16:13
PROVIDERS: ATTEND Internal Medicine Cardiovascular Disease
DX: I10 Essential (primary) hypertension (principal); R07.9 Chest pain, unspecified; R10.9 Unspecified abdominal pain
CPT/HCPCS: 93306

== ENCOUNTER 2020-01-15 09:10 | Inpatient (IN) | payer MEDICARE, MEDICAID ==
[~2020-01-15] VITALS: Ht 167.6 cm; Wt 94.3 kg
[~2020-01-15 09:10] MED LIST changes: -ASCO500T11 PO; -DONE5TAB31 PO; -MULT-228 PO
[2020-01-15] MEDS ORDERED: HYDROmorphone HCL 2 MG/ML VL ONE ×2 (09:34→12:58)
[2020-01-15] MEDS ORDERED: ONDANSETRON HCL 4 MG/2 ML VIAL ONE ×2 (09:34→12:58)
[2020-01-15] MEDS ORDERED: HYDROmorphone HCL 2 MG/ML VL IV ONE ×2 (09:45→13:00)
[2020-01-15] MEDS ORDERED: ONDANSETRON HCL 4 MG/2 ML VIAL IV ONE ×2 (09:45→13:00)
[2020-01-15 10:09] LABS: Basophils # (auto) 0.1 10 ^3/uL (0-0.2); Basophils % (auto) 1.1 % (0.0-2.0); Eosinophils # (auto) 0.2 10 ^3/uL (0-0.8); Eosinophils % (auto) 2.7 % (0.0-7.0); Hematocrit 37.2 % (36.0-46.0); Hemoglobin 12.6 g/dL (12.2-16.2); Lymphocytes # (auto) 1.3 10 ^3/uL (0.4-5.4); Lymphocytes % (auto) 17.7 % (10.0-50.0); Mean Corpuscular Hemoglobin 30.6 pg (28.0-32.0); Mean Corpuscular Hgb Conc. 33.9 g/dL (32.0-36.0); Mean Corpuscular Volume 90.2 fL (80.0-100.0); Monocytes # (auto) 0.5 10 ^3/uL (0-1.3); Neutrophils # (auto) 5.4 10 ^3/uL (1.6-8.6); Neutrophils % (auto) 71.5 % (37.0-80.0); Platelet Count (auto) 149 10^3/uL (140-450); Red Blood Cells 4.12 10^6/uL (4.0-5.20); Red Cell Distribution Width 13.5 % (11.8-14.3); White Blood Cell 7.5 10^3/uL (4.4-10.8)
[2020-01-15 10:26] LABS: Calcium 8.4 mg/dL (8.5-10.1)
[2020-01-15 10:34] LABS: BUN/Creatinine Ratio 28.7; Bilirubin, Total 0.7 mg/dL (0.2-1.0); Total Protein 6.5 g/dL (6.4-8.2)
[2020-01-15 10:52] LABS: Urine Bacteria NONE SEEN /hpf (None Seen); Urine Blood Negative /uL (Negative); Urine Specific Gravity 1.011 (1.001-1.035); Urine WBC 1 /hpf (0 - 5)
[2020-01-15] MEDS ORDERED: ONDANSETRON HCL 4 MG/2 ML VIAL IV PRN (13:15)
[2020-01-15] MEDS ORDERED: DEXTROSE (50%) 50ML SYRG IV PRN (13:15)
[2020-01-15] MEDS ORDERED: LABETALOL HCL 5 MG/ML ML 20ML VIAL IV PRN (13:15)
[2020-01-15] MEDS ORDERED: LACTULOSE 20Gm/30ML SOLN PO PRN (13:15)
[2020-01-15] MEDS ORDERED: NITROGLYCERIN 0.4 MG SL TAB SL PRN (13:15)
[2020-01-15] MEDS ORDERED: ACETAMINOPHEN 500 MG TAB PO PRN (13:15)
[2020-01-15] MEDS: ALPRAZolam 0.25 MG TAB PO PRN (13:30)
[2020-01-15] MEDS ORDERED: hydrALAZINE HCL 20 MG/ML VL IV ONE (13:45)
[2020-01-15] MEDS ORDERED: InsuLIN REG 1unit/0.01ml Soln (100units/ml) SC SCH ×2 (14:00→18:00)
[2020-01-15] MEDS: BRINZOLAMIDE EACHEYE SCH ×2 (14:15→22:00)
[2020-01-15] MEDS: HYDROmorphone HCL 2 MG/ML VL IV PRN ×3 (14:15→23:44)
--- NOTE | 2020-01-15 14:25 | NUR ---
Telemetry admit from ER INOCENTE KILLIAN admitted to Telemetry unit after SBAR received. Patient oriented to Maria Ines estrada RN, unit, room, bed, and unit policies regarding patient care and visiting hours. Patient now on continuous telemetry monitoring, tele box #32 running sinus sabra. Patient placed on bedside oxygen, weighed by bedscale and encouraged to call if they need something. All questions and concerns addressed, patient verbalized understanding.
[2020-01-15 15:13] VITALS: BP 129/47
[2020-01-15] MEDS ORDERED: ACCU-CHEK COMFORT CURVE STRIP VI SCH (16:00)
[2020-01-15 17:00] VITALS: BP 167/56
[2020-01-15] MEDS ORDERED: DONE5TAB31 PO (17:23)
[2020-01-15] MEDS ORDERED: MULT-228 PO (17:23)
[2020-01-15] MEDS ORDERED: ASCO500T11 PO (17:23)
[2020-01-15] MEDS: RIVAROXABAN 20 MG TAB PO SCH (17:48)
[2020-01-15] MEDS ORDERED: PATIENTS OWN MEDICATION (Atorvastatin Calcium 80 MG) PO SCH (18:00)
--- NOTE | 2020-01-15 19:30 | NUR ---
Opening Shift Note Assumed care of patient, awake and alert oriented x4. No shortness of breath noted. Bed is having 10/10 shoulder pain. To medicate with PRN pain medication as ordered according to pain scale. Instructed on POC and to call for assist PRN. Bed is in lowest locked position with bed rails up x2 and call light is within reach.
[2020-01-15] MEDS: ACCU-CHEK COMFORT CURVE STRIP VI SCH ×2 (19:45→23:49)
[2020-01-15] MEDS: InsuLIN REG 1unit/0.01ml Soln (100units/ml) SC SCH (19:46)
[2020-01-15 22:00] VITALS: BP 167/74
[2020-01-15] MEDS: BRIMONIDINE TARTRATE TIMOLOL M EACHEYE SCH (22:00)
[2020-01-15] MEDS: [UNRECOGNIZED DRUG - OTHER] EACHEYE SCH (22:00)
[2020-01-15] MEDS ORDERED: PATIENTS OWN MEDICATION (Hydralazine Hcl 50 MG) PO SCH (22:00)
[2020-01-15] MEDS: ATORVASTATIN 20 MG TAB PO SCH (22:27)
[2020-01-15] MEDS: hydrALAZINE HCL 25 MG TAB PO SCH (22:28)
[2020-01-15] MEDS: METOPROLOL TARTRATE 25 MG TAB PO SCH (22:29)
[2020-01-15] MEDS: LATANOPROST 0.005 % OPTH(EYE) SOL 2.5ML EACHEYE SCH (22:30)
[2020-01-16] MEDS: HYDROcodone-ACET 5/325MG TAB PO PRN ×2 (02:30→09:30)
[2020-01-16] MEDS: ACCU-CHEK COMFORT CURVE STRIP VI SCH ×5 (04:00→20:23)
[2020-01-16] MEDS: InsuLIN REG 1unit/0.01ml Soln (100units/ml) SC SCH ×6 (04:00→20:26)
[2020-01-16] MEDS: HYDROmorphone HCL 2 MG/ML VL IV PRN ×2 (04:55→12:09)
[2020-01-16 06:00] VITALS: BP 124/50
[2020-01-16] MEDS: BRINZOLAMIDE EACHEYE SCH ×3 (06:00→21:56)
[2020-01-16 07:48] LABS: Albumin 2.5 g/dL (3.4-5.0); BUN/Creatinine Ratio 25.6; Calcium 7.9 mg/dL (8.5-10.1); Potassium 3.9 mmol/L (3.5-5.1)
--- NOTE | 2020-01-16 08:00 | NUR ---
Opening Shift Note Assumed care of patient, awake, alert, and oriented. No S/S of distress/SOB. Patient c/o pain to left shoulder 12/10. Will medicate per MD orders. Bed in lowest/locked position, bed rails up x2, call light within reach. Instructed on POC and to call for assist PRN. Will continue to monitor for changes Q1hr and PRN. Addendum: 01/16/20 at 1129 by ALEXIA AUGUSTE RN RN PAIN MEDS NOT DUE AT THIS TIME WILL ASSIST PATIENT WITH A COMFORTABLE POSITION
[2020-01-16 08:01] LABS: Bilirubin, Total 0.6 mg/dL (0.2-1.0); Total Protein 5.7 g/dL (6.4-8.2)
[2020-01-16 09:00] VITALS: BP 137/58
--- NOTE | 2020-01-16 09:15 | NUR ---
PAIN PATIENT C/O PAIN 6/ TO LEFT SHOULDER. PATIENT STATING "SHE CAN'T STAND THE PAIN IT HURTS SO BAD." WILL MEDICATE PER MD ORDERS
[2020-01-16] MEDS: BRIMONIDINE TARTRATE TIMOLOL M EACHEYE SCH ×2 (09:31→21:59)
[2020-01-16] MEDS: ALLOPURINOL 100 MG TAB PO SCH (09:31)
[2020-01-16] MEDS: hydrALAZINE HCL 25 MG TAB PO SCH ×2 (09:32→22:03)
[2020-01-16] MEDS: METOPROLOL TARTRATE 25 MG TAB PO SCH ×2 (09:32→22:03)
[2020-01-16] MEDS: ASPirin 81 mg TAB PO SCH (09:33)
[2020-01-16] MEDS: amLODIPine BESYLATE 5 MG TAB PO SCH (09:33)
--- NOTE | 2020-01-16 12:00 | NUR ---
PAIN PATIENT C/O PAIN 10/10 TO LEFT SHOULDER. PATIENT STATING "IT HURTS SO BAD." WILL MEDICATE PER MD ORDERS
--- NOTE | 2020-01-16 12:40 | NUR ---
ROUNDS DR TAM AT BEDSIDE DISCUSSING POC WITH PATIENT AND THIS RN. NO NEW ORDERS RECEIVED AT THIS TIME. WILL CONTINUE TO MONITOR
[2020-01-16 14:00] VITALS: BP 130/49
--- NOTE | 2020-01-16 14:05 | NUR ---
ROUNDS PATIENT C/O NAUSEA, NO VOMITING. WILL MEDICATE PER MD ORDERS
--- NOTE | 2020-01-16 15:45 | NUR ---
ROUNDS PATIENT SITTING IN BED TALKING ON PHONE TO SON AND DAUGHTER IN LAW. NO S/S OF DISTRESS, NO C/O PAIN AT THIS TIME. WILL CONTINUE TO MONITOR
--- NOTE | 2020-01-16 15:47 | NUR ---
DR ANN PER FAMILY, DR ANN FOLLOWS PATIENT OUTSIDE OF HOSPITAL. DR ANN MADE AWARE PATIENT IS ADMITTED. PER DR ANN; HE WILL SEE PATIENT TOMORROW
[2020-01-16 17:00] VITALS: BP 132/50
[2020-01-16] MEDS: ALPRAZolam 0.25 MG TAB PO PRN (17:28)
[2020-01-16] MEDS: RIVAROXABAN 20 MG TAB PO SCH (17:28)
--- NOTE | 2020-01-16 19:30 | NUR ---
Opening Shift Note Assumed care of patient, awake and alert. No S/S of distress/SOB noted. Pt states she is having 5/10 pain on left shoulder that is on and off. She is refusing pain medication and tolerating well. Bed in lowest and locked position with side rails up x2 and call light in reach. Instructed on POC and to call for assist PRN.
--- NOTE | 2020-01-16 20:55 | NUR ---
Wound pictures taken: Bleeding skin tear discovered on patients back. Wound pictures taken. Patient stated "I was feeling itchy so I scratched. I didn't know I cut myself." Patient tolerated well. Site cleaned and Optifoam placed. To place wound consult.
[2020-01-16] MEDS: [UNRECOGNIZED DRUG - OTHER] EACHEYE SCH (21:58)
[2020-01-16 22:00] VITALS: BP 156/57
[2020-01-16] MEDS: LATANOPROST 0.005 % OPTH(EYE) SOL 2.5ML EACHEYE SCH (22:00)
[2020-01-16] MEDS: ATORVASTATIN 20 MG TAB PO SCH (22:04)
[2020-01-17] MEDS: InsuLIN REG 1unit/0.01ml Soln (100units/ml) SC SCH ×6 (00:27→21:24)
[2020-01-17] MEDS: ACCU-CHEK COMFORT CURVE STRIP VI SCH ×6 (00:27→20:00)
[2020-01-17] MEDS: hydrALAZINE HCL 20 MG/ML VL IV PRN ×2 (00:29→05:50)
[2020-01-17 05:00] VITALS: BP 169/65
[2020-01-17] MEDS: ALPRAZolam 0.25 MG TAB PO PRN (05:31)
[2020-01-17] MEDS: BRINZOLAMIDE EACHEYE SCH ×3 (05:33→22:00)
[2020-01-17 06:41] VITALS: BP 138/57
[2020-01-17 09:00] VITALS: BP 125/65
[2020-01-17] MEDS: BRIMONIDINE TARTRATE TIMOLOL M EACHEYE SCH ×2 (09:25→22:00)
[2020-01-17] MEDS: ALLOPURINOL 100 MG TAB PO SCH (09:33)
[2020-01-17] MEDS: ASPirin 81 mg TAB PO SCH (09:33)
[2020-01-17] MEDS: hydrALAZINE HCL 25 MG TAB PO SCH ×2 (09:33→23:42)
[2020-01-17] MEDS: amLODIPine BESYLATE 5 MG TAB PO SCH (09:33)
[2020-01-17] MEDS: METOPROLOL TARTRATE 25 MG TAB PO SCH ×2 (09:34→23:43)
--- NOTE | 2020-01-17 11:00 | NUR ---
WOUND CARE NOTE: IN TO SEE PATIENT AT THIS TIME PER WOUND CARE CONSULT REQUEST. PATIENT NOTED TO HAVE WOUND UPON ADMIT. WOUND PHOTO TAKEN FOR REFERENCE AT THAT TIME BY BEDSIDE NURSE. PATIENT ADMITTED TO [facility] WITH DIAGNOSIS OF LEFT SHOULDER FRACTURE, SYNCOPE, TIA, HYPOGLYCEMIA. CURRENT KEITH SCORE IS 18. PATIENT HAS SLING APPLIED TO RIGHT ARM/SHOULDER. SHE STATES THAT SHE SCRATCHED HER BACK, AND WAS RENDERED WITH A LARGE SCRATCH. WOUND MEASURES 6 CM IN LENGTH. IT IS PARTIAL THICKNESS OPEN, WITH RED WOUND BED, PINK PERIWOUND. NO DRAINAGE NOTED. CLEANSED WITH NS, PATTED DRY WITH STERILE GAUZE. APPLIED THERAHONEY, OPTIFOAM GENTLE DRESSING. LEAVE DRESSING APPLIED TILL DISCHARGE. NO FURTHER WOUND CARE NEEDED. WOUND IS SUPERFICIAL, AND SHOULD NOT NEED A DRESSING WITHIN A DAY OR TWO. SKIN/WOUND CARE PLAN IMPLEMENTED AT THIS TIME. Addendum: 01/17/20 at 1732 by Sole Winslow RN Amended: Links added.
[2020-01-17 13:00] VITALS: BP 140/60
[2020-01-17 17:00] VITALS: BP 156/67
[2020-01-17] MEDS: RIVAROXABAN 20 MG TAB PO SCH (17:26)
--- NOTE | 2020-01-17 19:32 | NUR ---
Opening Shift Note Assumed care of patient, awake and alert. No S/S of distress/SOB or pain. Instructed on POC and to call for assist PRN, will continue to monitor for changes Q1hr and PRN. Safety precaution maintained bed is in lowest position and locked, bed rails 2x. Call light and bedside table are within reach.
[2020-01-17 22:00] VITALS: BP 150/51
[2020-01-17] MEDS: LATANOPROST 0.005 % OPTH(EYE) SOL 2.5ML EACHEYE SCH (22:00)
[2020-01-17] MEDS: [UNRECOGNIZED DRUG - OTHER] EACHEYE SCH (22:00)
[2020-01-17] MEDS: ATORVASTATIN 20 MG TAB PO SCH (22:00)
[2020-01-18] MEDS: InsuLIN REG 1unit/0.01ml Soln (100units/ml) SC SCH ×6 (01:02→20:33)
[2020-01-18] MEDS: ACCU-CHEK COMFORT CURVE STRIP VI SCH ×6 (04:03→20:34)
[2020-01-18 05:00] VITALS: BP 148/60
[2020-01-18] MEDS: BRINZOLAMIDE EACHEYE SCH ×3 (06:26→22:00)
[2020-01-18 09:24] VITALS: BP 145/70
[2020-01-18] MEDS: ASPirin 81 mg TAB PO SCH (10:53)
[2020-01-18] MEDS: METOPROLOL TARTRATE 25 MG TAB PO SCH ×2 (10:53→21:58)
[2020-01-18] MEDS: BRIMONIDINE TARTRATE TIMOLOL M EACHEYE SCH ×2 (10:53→22:00)
[2020-01-18] MEDS: amLODIPine BESYLATE 5 MG TAB PO SCH (10:54)
[2020-01-18] MEDS: hydrALAZINE HCL 25 MG TAB PO SCH ×2 (10:54→21:58)
[2020-01-18] MEDS: ALLOPURINOL 100 MG TAB PO SCH (10:54)
[2020-01-18 13:00] VITALS: BP 139/93
[2020-01-18] MEDS: Glucerna Carbsteady SHAKE Vanilla 8oz PO SCH ×2 (13:18→18:49)
--- NOTE | 2020-01-18 14:00 | NUR ---
IV TO RAC#20 BLEEDING ACTIVELY. IV CATHETER DC'D CATHETER INTACT, NO PHLEBITIS. NEW IV ACCESS TO RIGHT SHOULDER #22. FLUSHES WELL. PT TOLERATED PROCEDURE WELL. CALL LIGHT WITHIN REACH.
--- NOTE | 2020-01-18 15:26 | NUR ---
assessment Patient is a 74 year old female who is alert and oriented. Patients cognitive abilities are intact. Prior to admission patient lived home with family and functioned independently. Patient informed me she is able to care for her own ADLs. Per patient she will return home to her prior living arrangements post discharge and family will transport her home. Patient informed me she fell getting into bed and fractured her left arm. Patient is right handed. Patients PCP is Dr Hahn. Patient has a cane and fww for home use. Patient feels safe returning home on discharge. Patient may need home health for safety and med management. I informed patient she has a right to speak to a social services regarding all care. I informed patient she has a right to participate in any and all discharge planning. Patient does not have a POA and advanced directive. I have offered patient information on POA and advanced directives. I informed the patient the advantages and benefits of having an Advanced Directive. Patient verbalized understanding and agreed to discharge plan. Addendum: 01/18/20 at 1531 by Ricarda LOZOYA Amended: Links added.
--- NOTE | 2020-01-18 15:30 | NUR ---
Nutrition Assessment Notes Please refer to link for full assessment notes. Est Energy needs: 8116-7457 kcals (20-23 kcal/kgBW) Est Protein needs: 75-83 gms/day (1.0-1.1 gm/kgAdjBW) Will continue to monitor and reassess prn. Addendum: 01/18/20 at [address] Amended: Links added.
[2020-01-18 16:59] VITALS: BP 135/62
[2020-01-18] MEDS: RIVAROXABAN 20 MG TAB PO SCH (17:42)
--- NOTE | 2020-01-18 20:00 | NUR ---
Opening Shift Note Assumed care of patient, awake, alert and oriented. No S/S of distress/SOB or pain. Bed locked, in lowest position, call light within reach, side rails up x2. Instructed on POC and to call for assist PRN. Will continue to monitor for changes Q1hr and PRN.
--- NOTE | 2020-01-18 20:26 | NUR ---
Consents for procedure Spoke with family member about POC for patient. Password obtained. Family member would like to discuss plan for procedure with MD before giving consent. Will inform day shift RN.
[2020-01-18] MEDS: LATANOPROST 0.005 % OPTH(EYE) SOL 2.5ML EACHEYE SCH (21:58)
[2020-01-18] MEDS: [UNRECOGNIZED DRUG - OTHER] EACHEYE SCH (21:59)
[2020-01-18 22:00] VITALS: BP 158/50
[2020-01-18] MEDS: ATORVASTATIN 20 MG TAB PO SCH (22:00)
[2020-01-19] MEDS: InsuLIN REG 1unit/0.01ml Soln (100units/ml) SC SCH ×6 (04:54→20:45)
[2020-01-19] MEDS: ACCU-CHEK COMFORT CURVE STRIP VI SCH ×6 (04:55→20:45)
[2020-01-19 05:00] VITALS: BP 162/56
[2020-01-19] MEDS: BRINZOLAMIDE EACHEYE SCH ×3 (05:49→22:37)
[2020-01-19 06:10] LABS: Basophils # (auto) 0.1 10 ^3/uL (0-0.2); Basophils % (auto) 1.2 % (0.0-2.0); Eosinophils # (auto) 0.3 10 ^3/uL (0-0.8); Eosinophils % (auto) 4.9 % (0.0-7.0); Hematocrit 32.9 % (36.0-46.0); Hemoglobin 11.4 g/dL (12.2-16.2); Lymphocytes # (auto) 1.5 10 ^3/uL (0.4-5.4); Mean Corpuscular Hemoglobin 30.9 pg (28.0-32.0); Mean Corpuscular Hgb Conc. 34.6 g/dL (32.0-36.0); Mean Corpuscular Volume 89.2 fL (80.0-100.0); Monocytes # (auto) 0.7 10 ^3/uL (0-1.3); Monocytes % (auto) 10.3 % (0.0-12.0); Neutrophils # (auto) 3.8 10 ^3/uL (1.6-8.6); Neutrophils % (auto) 59.6 % (37.0-80.0); Platelet Count (auto) 144 10^3/uL (140-450); Red Blood Cells 3.69 10^6/uL (4.0-5.20); Red Cell Distribution Width 13.2 % (11.8-14.3); White Blood Cell 6.4 10^3/uL (4.4-10.8)
[2020-01-19 06:27] LABS: INR 0.97 (0.9-1.15); Partial Thromboplastin Time 25.8 sec (23.64-32.05); Potassium 4.2 mmol/L (3.5-5.1)
[2020-01-19 06:32] LABS: BUN/Creatinine Ratio 33.3; Calcium 8.4 mg/dL (8.5-10.1)
--- NOTE | 2020-01-19 07:38 | NUR ---
RECEIVED PATIENT AWAKE, ALERT AND ORIENTED WITH PERIODS OF CONFUSION. NO SOB OR S/S DISTRESS NOTED, PATIENT DENIES PAIN AT THIS TIME. PLAN OF CARE DISCUSSED. SHOULDER SLING IN LEFT SHOULDER. CALL LIGHT AND PHONE WITHIN REACH, BED IN LOW AND LOCKED POSITION. WILL CONTINUE TO MONITOR Q1HR AND PRN. PATIENT AWAITING FOR PACEMAKER REVISION TODAY WITH DR. ORR
[2020-01-19 08:00] VITALS: BP 157/56
[2020-01-19] MEDS: Glucerna Carbsteady SHAKE Vanilla 8oz PO SCH ×3 (08:00→18:00)
[2020-01-19 09:00] VITALS: BP 157/56
[2020-01-19] MEDS: amLODIPine BESYLATE 5 MG TAB PO SCH (10:00)
[2020-01-19] MEDS: METOPROLOL TARTRATE 25 MG TAB PO SCH ×2 (10:00→22:23)
[2020-01-19] MEDS: BRIMONIDINE TARTRATE TIMOLOL M EACHEYE SCH ×2 (10:07→22:27)
[2020-01-19] MEDS: ASPirin 81 mg TAB PO SCH (10:08)
[2020-01-19] MEDS: hydrALAZINE HCL 25 MG TAB PO SCH ×2 (10:09→22:24)
[2020-01-19] MEDS: ALLOPURINOL 100 MG TAB PO SCH (10:10)
--- NOTE | 2020-01-19 12:12 | NUR ---
patient off unit in lab instructor Son ok's for mom to sign consent form for procedure
[2020-01-19] MEDS ORDERED: ATROPINE SULF 1 MG/10ml SYR ONE (12:19)
[2020-01-19] MEDS ORDERED: fentaNYL CITRATE 100 MCG/2 ML VL ONE (12:20)
[2020-01-19] MEDS ORDERED: VANCOMYCIN HCL 1000 MG VL ONE (12:20)
[2020-01-19] MEDS ORDERED: MIDAZOLAM HCL 1MG/1ML-2 ML VIAL ONE ×2 (12:20→13:22)
[2020-01-19] MEDS ORDERED: LIDOCAINE 2%HCL (LOCAL ANESTH.) INJ 20ML MDV ONE ×2 (12:20→13:39)
[2020-01-19] MEDS ORDERED: VANCOMYCIN 1GM/250ML 250 ML IV ONE ×2 (12:20→12:30)
[2020-01-19] MEDS ORDERED: EPINEPHrine HCL 1 MG/10 ML SYRG ONE (12:20)
--- NOTE | 2020-01-19 12:32 | NUR ---
paged Dr. St, patient's daughter in-law demands to talk to MD first before procedure.
--- NOTE | 2020-01-19 12:37 | NUR ---
Dr. St called back, number to family member Amy [phone] provided
[2020-01-19 13:00] VITALS: BP 144/51
[2020-01-19] MEDS ORDERED: diphenhdrAMINE HCL 50 MG/1 ML VL ONE (13:10)
[2020-01-19] MEDS ORDERED: HYDROmorphone HCL 2 MG/ML VL ONE (13:45)
[2020-01-19] MEDS: RIVAROXABAN 20 MG TAB PO SCH (15:13)
--- NOTE | 2020-01-19 15:40 | NUR ---
S/P RV LEAD REVISION WITH DR. ORR NEW ORDER TO HOLD BLOOD THINNERS FOR 3 DAYS
[2020-01-19 17:00] VITALS: BP 149/89
--- NOTE | 2020-01-19 20:00 | NUR ---
Opening shift note Assumed care of patient. Alert and oriented x4. No signs/ symptoms of distress/ SOB noted. Patient complaining of pain in her left shoulder 8/10. Will provide pain medication as ordered. Patient agreed to have Allen 5/325 mg. Dressing to left upper chest is clean, dry and intact. Sling applied to left shoulder, ice pack applied to left shoulder. Patient instructed not to reach or pull with left arm or to roll from side to side. Patient verbalized understanding. Patient was repositioned, new gown applied. Bed locked, in lowest position, call light within reach, side rails up x2. Discussed POC with patient. Will continue to monitor Q 1 hour and as needed.
[2020-01-19] MEDS: HYDROcodone-ACET 5/325MG TAB PO PRN (20:46)
[2020-01-19 22:00] VITALS: BP 148/67
[2020-01-19] MEDS: ATORVASTATIN 20 MG TAB PO SCH (22:24)
[2020-01-19] MEDS: LATANOPROST 0.005 % OPTH(EYE) SOL 2.5ML EACHEYE SCH (22:24)
[2020-01-19] MEDS: [UNRECOGNIZED DRUG - OTHER] EACHEYE SCH (22:25)
[2020-01-20] MEDS: InsuLIN REG 1unit/0.01ml Soln (100units/ml) SC SCH ×5 (00:38→16:12)
[2020-01-20] MEDS: ACCU-CHEK COMFORT CURVE STRIP VI SCH ×5 (00:38→16:09)
[2020-01-20] MEDS: HYDROcodone-ACET 5/325MG TAB PO PRN ×2 (03:04→09:44)
[2020-01-20 05:00] VITALS: BP 145/85
[2020-01-20] MEDS: BRINZOLAMIDE EACHEYE SCH ×2 (06:06→14:47)
[2020-01-20 06:32] LABS: Basophils # (auto) 0.1 10 ^3/uL (0-0.2); Basophils % (auto) 0.8 % (0.0-2.0); Eosinophils # (auto) 0.3 10 ^3/uL (0-0.8); Hematocrit 32.9 % (36.0-46.0); Hemoglobin 11.4 g/dL (12.2-16.2); Lymphocytes % (auto) 14.6 % (10.0-50.0); Mean Corpuscular Hemoglobin 30.9 pg (28.0-32.0); Mean Corpuscular Hgb Conc. 34.7 g/dL (32.0-36.0); Mean Corpuscular Volume 89.1 fL (80.0-100.0); Monocytes # (auto) 0.8 10 ^3/uL (0-1.3); Monocytes % (auto) 11.4 % (0.0-12.0); Neutrophils # (auto) 4.7 10 ^3/uL (1.6-8.6); Neutrophils % (auto) 68.2 % (37.0-80.0); Platelet Count (auto) 144 10^3/uL (140-450); Red Cell Distribution Width 13.4 % (11.8-14.3); White Blood Cell 6.9 10^3/uL (4.4-10.8)
[2020-01-20 06:36] LABS: Potassium 4.3 mmol/L (3.5-5.1)
[2020-01-20 06:41] LABS: Calcium 8.3 mg/dL (8.5-10.1)
--- NOTE | 2020-01-20 08:03 | NUR ---
Opening Note Assumed pt care from NOC RN. Pt is a/ox4 with no s/s of distress or SOB. Pt is currently sitting upright in bed with mild c/o pain; discussed next available pain medication. Flores is present, free of kinks and draining to gravity. Pt's L arm in sling; dressing to upper chest is clean dry and intact. Discussed POC with pt; pt verbalized understanding. Safety measures maintained with call light within reach,bed in lowest position and side rails up. Will continue to monitor.
[2020-01-20] MEDS: Glucerna Carbsteady SHAKE Vanilla 8oz PO SCH ×3 (08:08→18:00)
[2020-01-20 09:00] VITALS: BP 161/64
[2020-01-20] MEDS: ASPirin 81 mg TAB PO SCH (09:44)
[2020-01-20] MEDS: METOPROLOL TARTRATE 25 MG TAB PO SCH (09:44)
[2020-01-20] MEDS: BRIMONIDINE TARTRATE TIMOLOL M EACHEYE SCH (09:44)
[2020-01-20] MEDS: amLODIPine BESYLATE 5 MG TAB PO SCH (09:44)
[2020-01-20] MEDS: ALLOPURINOL 100 MG TAB PO SCH (09:44)
[2020-01-20] MEDS: hydrALAZINE HCL 25 MG TAB PO SCH (09:45)
--- NOTE | 2020-01-20 09:47 | NUR ---
Elevated BP Reported BP of 161/64 with a HR of 67 reported. Provided daily scheduled BP meds. Will reassess need for PRNs. Addendum: 01/20/20 at 1147 by GABRIELLE SINGH RN RN Bp reassessed; 116/53. Will continue to monitor.
--- NOTE | 2020-01-20 11:13 | NUR ---
Dr Rosenthal at Bedside MD to see pt. Plans to d/c pt hoe today once cleared by cardiology. MD vaughn jorgensen to be d/c'ed. Will continue to monitor.
--- NOTE | 2020-01-20 11:29 | NUR ---
Flores Catheter Removed Flores removed. Pt tolerated removal well. Pt instructed to call if need to void; pt verbalized understanding. Addendum: 01/20/20 at 1613 by GABRIELLE SINGH RN RN Pt has since voided
--- NOTE | 2020-01-20 12:31 | NUR ---
D/C Photo's Taken for Reference
--- NOTE | 2020-01-20 12:44 | NUR ---
Dr St Aware of Cardio Clearance for D/C MD aware. Per MD, will come on floor to see pt.
[2020-01-20 13:57] VITALS: BP 116/53
--- NOTE | 2020-01-20 14:39 | NUR ---
[employer] At Bedside to assess Pacemaker [employer] rep at bedside to assess pacemaker. Per rep, pacemaker shows no abnormalities; stated he would let Dr St know. Currently awaiting cardio clearance for d/c.
--- NOTE | 2020-01-20 16:15 | NUR ---
Paged Dr Maciel Major MD regarding cardio clearance. Will continue to monitor. Addendum: 01/20/20 at 1617 by GABRIELLE SINGH RN RN [employer] back. stated that pt is okay to d/c. Will notify .
--- NOTE | 2020-01-20 16:32 | NUR ---
IV and Tele 32 D/C'ed Iv to pt's R wrist removed, catheter fully intact. Site is asymptomatic. Pressure was applied to site for 3 minutes with gauze and then wrapped in coban. Pt instructed to keep dressing on for 30 minutes Tele 32 removed and sent back to ICU Staff made aware.
[2020-01-20] MEDS: RIVAROXABAN 20 MG TAB PO SCH (18:00)
--- NOTE | 2020-01-20 18:35 | NUR ---
Pt D/C'ed Off Unit Pt d/c'ed off unit via wheelchair. Pt is a/ox4 with no s/s of distress or SOB. Pt d/c'ed with all belonging, education material, prescriptions and all follow up information. All questions were answered and all questions were explained to pt and pt's family members. All questions were answered. IV and tele box were d/c'ed prior to d/c.
== END 2020-01-20 18:35 | disposition home or self-care (01) | DRG 261 ==
LOC: EDBD 09:10 → ER 09:10 → TELE 09:11 → TELE-CENTR 14:29
PROVIDERS: ADMIT Internal Medicine; ATTEND Internal Medicine
PROC: 02WA3MZ Revision of Cardiac Lead in Heart, Percutaneous Approach (ICD-10-PCS; principal; 2020-01-19)
PROC: 0JWT3PZ Revision of Cardiac Rhythm Related Device in Trunk Subcutaneous Tissue and Fascia, Percutaneous Approach (ICD-10-PCS; 2020-01-19)
DX: T82.120A Displacement of cardiac electrode, initial encounter (principal); S42.212A Unspecified displaced fracture of surgical neck of left humerus, initial encounter for closed fracture; E44.0 Moderate protein-calorie malnutrition; E11.649 Type 2 diabetes mellitus with hypoglycemia without coma; G25.81 Restless legs syndrome; H54.7 Unspecified visual loss; I49.5 Sick sinus syndrome; I25.10 Atherosclerotic heart disease of native coronary artery without angina pectoris; I12.9 Hypertensive chronic kidney disease with stage 1 through stage 4 chronic kidney disease, or unspecified chronic kidney disease; E11.22 Type 2 diabetes mellitus with diabetic chronic kidney disease; N18.3 Chronic kidney disease, stage 3 (moderate); E66.9 Obesity, unspecified; E11.40 Type 2 diabetes mellitus with diabetic neuropathy, unspecified; E03.9 Hypothyroidism, unspecified; R55 Syncope and collapse; G20 Parkinson's disease; M10.9 Gout, unspecified; W19.XXXA Unspecified fall, initial encounter; E88.09 Other disorders of plasma-protein metabolism, not elsewhere classified; Y71.2 Prosthetic and other implants, materials and accessory cardiovascular devices associated with adverse incidents; Z86.73 Personal history of transient ischemic attack (TIA), and cerebral infarction without residual deficits; Z83.42 Family history of familial hypercholesterolemia; Z88.2 Allergy status to sulfonamides; Z95.1 Presence of aortocoronary bypass graft; Z95.0 Presence of cardiac pacemaker; Z90.49 Acquired absence of other specified parts of digestive tract; Z88.1 Allergy status to other antibiotic agents; Z88.0 Allergy status to penicillin; Z88.5 Allergy status to narcotic agent; Z88.8 Allergy status to other drugs, medicaments and biological substances; Z79.899 Other long term (current) drug therapy; Z98.51 Tubal ligation status; Z90.89 Acquired absence of other organs; Z68.33 Body mass index [BMI] 33.0-33.9, adult; Y92.009 Unspecified place in unspecified non-institutional (private) residence as the place of occurrence of the external cause; Z83.3 Family history of diabetes mellitus; Z82.49 Family history of ischemic heart disease and other diseases of the circulatory system; Z79.4 Long term (current) use of insulin
CPT/HCPCS: 36415; 51702; 70450; 71045; 73030; 73200; 80048; 80053; 81001; 82550; 82962; 83036; 83880; 84443; 84484; 85025; 85610; 85730; 86850; 86900; 86901; 93005; 96374; 96375; 96376; 99152; 99153; G0378; J1815; J2250; J2405

== ENCOUNTER → 2020-03-28 | Outpatient (CLI) | payer MEDICARE ==
[~2020-03-28] MED LIST changes: +ASCO500T11 PO; -DEXT20CA PO; +DONE5TAB31 PO; -LISI10TA6 PO; +MULT-228 PO; -OMEP20TA PO; -POLYSOL2 EACHEYE; -PRAM0.252 PO
[2020-03-28 08:10] LABS: Basophils # (auto) 0.1 10 ^3/uL (0-0.2); Basophils % (auto) 1.8 % (0.0-2.0); Eosinophils # (auto) 0.2 10 ^3/uL (0-0.8); Hematocrit 37.7 % (36.0-46.0); Hemoglobin 12.9 g/dL (12.2-16.2); Lymphocytes # (auto) 1.5 10 ^3/uL (0.4-5.4); Lymphocytes % (auto) 28.2 % (10.0-50.0); Mean Corpuscular Hgb Conc. 34.1 g/dL (32.0-36.0); Monocytes # (auto) 0.4 10 ^3/uL (0-1.3); Neutrophils # (auto) 3.2 10 ^3/uL (1.6-8.6); Platelet Count (auto) 171 10^3/uL (140-450); Red Blood Cells 4.28 10^6/uL (4.0-5.20); Red Cell Distribution Width 13.3 % (11.8-14.3); White Blood Cell 5.5 10^3/uL (4.4-10.8)
[2020-03-28 08:59] LABS: Albumin 3.3 g/dL (3.4-5.0); Calcium 8.7 mg/dL (8.5-10.1); Magnesium 2.1 mg/dL (1.6-2.6); Potassium 4.1 mmol/L (3.5-5.1)
[2020-03-28 09:03] LABS: Bilirubin, Total 0.4 mg/dL (0.2-1.0); Total Protein 6.5 g/dL (6.4-8.2)
== END | disposition home or self-care (01) ==
LOC: LAB 07:36
PROVIDERS: ATTEND Internal Medicine Nephrology
DX: N18.3 Chronic kidney disease, stage 3 (moderate) (principal); D63.1 Anemia in chronic kidney disease; E21.3 Hyperparathyroidism, unspecified; E78.5 Hyperlipidemia, unspecified
CPT/HCPCS: 36415; 80053; 82043; 83735; 83970; 84100; 85025

== ENCOUNTER → 2020-06-27 | Outpatient (CLI) | payer MEDICARE, MEDICAID ==
[2020-06-27 12:26] LABS: Potassium 4.2 mmol/L (3.5-5.1)
[2020-06-27 12:37] LABS: Albumin 3.3 g/dL (3.4-5.0); BUN/Creatinine Ratio 29.8; Bilirubin, Total 0.4 mg/dL (0.2-1.0); Calcium 8.6 mg/dL (8.5-10.1); Creatinine, Urine 186 mg/dL (30.0-125.0); Phosphorus 3.6 mg/dL (2.5-4.90); Total Protein 6.4 g/dL (6.4-8.2); Uric Acid 4.9 mg/dL (2.6-6.0)
[2020-06-27 13:22] LABS: Micro Albumin 2320 mg/L (0-30.0)
== END | disposition home or self-care (01) ==
LOC: LAB 10:50
PROVIDERS: ATTEND Internal Medicine Nephrology
DX: E11.22 Type 2 diabetes mellitus with diabetic chronic kidney disease (principal); N18.30 Chronic kidney disease, stage 3 unspecified; R80.9 Proteinuria, unspecified; M10.9 Gout, unspecified; E56.9 Vitamin deficiency, unspecified; E83.39 Other disorders of phosphorus metabolism
CPT/HCPCS: 36415; 80053; 82043; 82306; 82570; 83036; 83970; 84100; 84550

== ENCOUNTER → 2020-08-31 | Outpatient (CLI) | payer MEDICARE, MEDICAID ==
[2020-08-31 11:26] LABS: Basophils # (auto) 0.1 10 ^3/uL (0-0.2); Basophils % (auto) 0.9 % (0.0-2.0); Eosinophils # (auto) 0.2 10 ^3/uL (0-0.8); Eosinophils % (auto) 2.5 % (0.0-7.0); Hematocrit 38.7 % (36.0-46.0); Hemoglobin 13.5 g/dL (12.2-16.2); Lymphocytes # (auto) 1.8 10 ^3/uL (0.4-5.4); Lymphocytes % (auto) 25.1 % (10.0-50.0); Mean Corpuscular Hemoglobin 30.8 pg (28.0-32.0); Mean Corpuscular Hgb Conc. 34.8 g/dL (32.0-36.0); Mean Corpuscular Volume 88.6 fL (80.0-100.0); Monocytes # (auto) 0.6 10 ^3/uL (0-1.3); Neutrophils # (auto) 4.6 10 ^3/uL (1.6-8.6); Neutrophils % (auto) 63.5 % (37.0-80.0); Platelet Count (auto) 142 10^3/uL (140-450); Red Blood Cells 4.36 10^6/uL (4.0-5.20); Red Cell Distribution Width 12.9 % (11.8-14.3); White Blood Cell 7.3 10^3/uL (4.4-10.8)
[2020-08-31 11:38] LABS: Albumin 3.1 g/dL (3.4-5.0); Calcium 8.7 mg/dL (8.5-10.1); Potassium 4.3 mmol/L (3.5-5.1)
[2020-08-31 11:43] LABS: BUN/Creatinine Ratio 22.3; Bilirubin, Total 0.4 mg/dL (0.2-1.0); Phosphorus 4.2 mg/dL (2.5-4.90); Total Protein 6.7 g/dL (6.4-8.2); Uric Acid 6.3 mg/dL (2.6-6.0)
== END | disposition home or self-care (01) ==
LOC: LAB 10:47
PROVIDERS: ATTEND Internal Medicine Nephrology
DX: N18.30 Chronic kidney disease, stage 3 unspecified (principal); D63.1 Anemia in chronic kidney disease; E21.3 Hyperparathyroidism, unspecified; M10.9 Gout, unspecified
CPT/HCPCS: 36415; 80053; 82043; 82570; 83970; 84100; 84550; 85025

== ENCOUNTER → 2020-11-29 | Outpatient (CLI) | payer MEDICARE, MEDICAID ==
[~2020-11-29] MED LIST changes: +ATOR-47 PO; -ATOR1TAB PO; -DONE5TAB31 PO; +DONE5TAB80 PO
[2020-11-29 09:38] LABS: Cholesterol 135 mg/dL (< 200); HDL Cholesterol 55 mg/dL (40-59); LDL Cholesterol 65 mg/dL (< 100); Triglycerides 95 mg/dL (< 150)
[2020-11-30 15:10] LABS: Albumin 3.1 g/dL (3.4-5.0); Calcium 8.2 mg/dL (8.5-10.1); Potassium 4.3 mmol/L (3.5-5.1)
[2020-11-30 15:14] LABS: BUN/Creatinine Ratio 17.1; Bilirubin, Total 0.4 mg/dL (0.2-1.0); Phosphorus 3.7 mg/dL (2.5-4.90); Total Protein 6.4 g/dL (6.4-8.2); Uric Acid 4.8 mg/dL (2.6-6.0)
[2020-11-30 15:38] LABS: Protein, Urine 272.3 mg/dL (0.0-11.9)
== END | disposition home or self-care (01) ==
LOC: LAB 08:09
PROVIDERS: ATTEND Internal Medicine
DX: E11.22 Type 2 diabetes mellitus with diabetic chronic kidney disease (principal); N18.31 Chronic kidney disease, stage 3a; E11.9 Type 2 diabetes mellitus without complications; E83.39 Other disorders of phosphorus metabolism; M10.9 Gout, unspecified
CPT/HCPCS: 36415; 80053; 80061; 82043; 82570; 83036; 83970; 84100; 84156; 84550

== ENCOUNTER 2020-12-24 10:35 | Emergency (ER) | payer MEDICARE, MEDICAID ==
[~2020-12-24] VITALS: Ht 167.6 cm; Wt 90.7 kg
[2020-12-24 12:08] LABS: Urine Bacteria FEW /hpf (None Seen); Urine Blood Negative /uL (Negative); Urine Hyaline Cast FEW /lpf (0 - 2); Urine Mucus FEW (None Seen); Urine Specific Gravity 1.009 (1.001-1.035); Urine WBC 1 /hpf (0 - 5)
[2020-12-24 12:13] LABS: Basophils # (auto) 0.1 10 ^3/uL (0-0.2); Basophils % (auto) 0.9 % (0.0-2.0); Eosinophils # (auto) 0.2 10 ^3/uL (0-0.8); Eosinophils % (auto) 2.5 % (0.0-7.0); Hematocrit 39.6 % (36.0-46.0); Hemoglobin 13.4 g/dL (12.2-16.2); Lymphocytes # (auto) 1.3 10 ^3/uL (0.4-5.4); Lymphocytes % (auto) 17.1 % (10.0-50.0); Mean Corpuscular Hgb Conc. 33.9 g/dL (32.0-36.0); Mean Corpuscular Volume 88.5 fL (80.0-100.0); Monocytes # (auto) 0.6 10 ^3/uL (0-1.3); Monocytes % (auto) 7.2 % (0.0-12.0); Neutrophils # (auto) 5.7 10 ^3/uL (1.6-8.6); Neutrophils % (auto) 72.3 % (37.0-80.0); Nucleated Red Blood Cells % 0.1 %; Platelet Count (auto) 176 10^3/uL (140-450); Red Blood Cells 4.48 10^6/uL (4.0-5.20); Red Cell Distribution Width 13.6 % (11.8-14.3); White Blood Cell 7.8 10^3/uL (4.4-10.8)
[2020-12-24 12:32] LABS: Albumin 3.6 g/dL (3.4-5.0); Calcium 8.4 mg/dL (8.5-10.1); Potassium 3.6 mmol/L (3.5-5.1)
[2020-12-24 12:38] LABS: BUN/Creatinine Ratio 25.4; Bilirubin, Total 0.5 mg/dL (0.2-1.0); Total Protein 6.8 g/dL (6.4-8.2)
[2020-12-24 15:58] VITALS: BP 143/57
== END 2020-12-24 16:37 | disposition home or self-care (01) ==
LOC: ER 10:35 → EDBD 10:35 → ER 16:37
DX: E11.649 Type 2 diabetes mellitus with hypoglycemia without coma (principal); E11.21 Type 2 diabetes mellitus with diabetic nephropathy; G30.9 Alzheimer's disease, unspecified; F02.80 Dementia in other diseases classified elsewhere, unspecified severity, without behavioral disturbance, psychotic disturbance, mood disturbance, and anxiety; I10 Essential (primary) hypertension; E78.5 Hyperlipidemia, unspecified; Z98.51 Tubal ligation status; Z88.1 Allergy status to other antibiotic agents; Z88.0 Allergy status to penicillin; Z88.8 Allergy status to other drugs, medicaments and biological substances
CPT/HCPCS: 36415; 80053; 81001; 82962; 84484; 85025; 93005

== ENCOUNTER → 2021-01-10 | Outpatient (CLI) | payer MEDICARE, MEDICAID | END | disposition home or self-care (01) | LOC: LAB 14:52 | PROVIDERS: ATTEND Nurse Practitioner Family | DX: S61.239A Puncture wound without foreign body of unspecified finger without damage to nail, initial encounter (principal); X58.XXXA Exposure to other specified factors, initial encounter; Y93.89 Activity, other specified; Y92.89 Other specified places as the place of occurrence of the external cause; Y99.8 Other external cause status | CPT/HCPCS: 87205 ==

== ENCOUNTER → 2021-02-22 | Outpatient (CLI) | payer MEDICARE, MEDICAID ==
[2021-02-22 08:32] LABS: Calcium 8.3 mg/dL (8.5-10.1); Potassium 3.4 mmol/L (3.5-5.1)
[2021-02-22 08:36] LABS: BUN/Creatinine Ratio 25.3
== END | disposition home or self-care (01) ==
LOC: LAB 07:29
PROVIDERS: ATTEND Internal Medicine
DX: E11.59 Type 2 diabetes mellitus with other circulatory complications (principal); I10 Essential (primary) hypertension
CPT/HCPCS: 36415; 80048; 83036

== ENCOUNTER 2021-06-13 09:15 | Day surgery (SDC) | payer MEDICARE, MEDICAID ==
[2021-06-09 14:05] LABS: Basophils # (auto) 0.1 10 ^3/uL (0-0.2); Basophils % (auto) 1.1 % (0.0-2.0); Eosinophils # (auto) 0.2 10 ^3/uL (0-0.8); Eosinophils % (auto) 2.8 % (0.0-7.0); Hematocrit 41.4 % (36.0-46.0); Hemoglobin 13.6 g/dL (12.2-16.2); Lymphocytes # (auto) 1.9 10 ^3/uL (0.4-5.4); Lymphocytes % (auto) 24.9 % (10.0-50.0); Mean Corpuscular Hemoglobin 29.6 pg (28.0-32.0); Mean Corpuscular Hgb Conc. 32.9 g/dL (32.0-36.0); Mean Corpuscular Volume 89.7 fL (80.0-100.0); Monocytes # (auto) 0.6 10 ^3/uL (0-1.3); Monocytes % (auto) 8.3 % (0.0-12.0); Neutrophils # (auto) 4.7 10 ^3/uL (1.6-8.6); Neutrophils % (auto) 62.9 % (37.0-80.0); Nucleated Red Blood Cells % 0.1 %; Red Blood Cells 4.61 10^6/uL (4.0-5.20); Red Cell Distribution Width 13.8 % (11.8-14.3); White Blood Cell 7.5 10^3/uL (4.4-10.8)
[2021-06-09 14:21] LABS: INR 0.99 (0.9-1.15); Partial Thromboplastin Time 23.7 sec (23.6-33.0)
[2021-06-09 14:24] LABS: Albumin 3.2 g/dL (3.4-5.0); BUN/Creatinine Ratio 25.6; Calcium 8.8 mg/dL (8.5-10.1); Potassium 3.8 mmol/L (3.5-5.1)
[2021-06-09 14:26] LABS: Bilirubin, Total 0.4 mg/dL (0.2-1.0); Total Protein 6.9 g/dL (6.4-8.2)
[~2021-06-13] VITALS: Ht 167.6 cm; Wt 91.2 kg
[~2021-06-13 09:15] MED LIST changes: -ALPR0.254 PO; +DEXT20CA PO; -DULA0.5I SC; +FURO40TA4 PO; -INSLANTI SC; -LATA0.0019 EACHEYE; -NETA0.02 EACHEYE; +OMEP20TA PO; +PRAM0.5T2 PO
[2021-06-13] MEDS ORDERED: SODIUM CHLORIDE LOCK 10 ML ONE (09:42)
[2021-06-13] MEDS ORDERED: diphenhdrAMINE HCL 50 MG/1 ML VL ONE (09:42)
[2021-06-13] MEDS: fentaNYL CITRATE 100 MCG/2 ML VL ONE ×2 (10:24→10:27)
[2021-06-13] MEDS: MIDAZOLAM HCL 5 MG/ML-1ML VIAL ONE ×2 (10:24→10:27)
[2021-06-13 11:04] VITALS: BP 167/70
== END 2021-06-13 11:15 | disposition home or self-care (01) ==
LOC: GI 09:15
PROVIDERS: ATTEND Internal Medicine Gastroenterology
DX: R19.4 Change in bowel habit (principal); D12.0 Benign neoplasm of cecum; D12.3 Benign neoplasm of transverse colon; D12.5 Benign neoplasm of sigmoid colon; K64.8 Other hemorrhoids; K63.89 Other specified diseases of intestine; K21.9 Gastro-esophageal reflux disease without esophagitis; E11.22 Type 2 diabetes mellitus with diabetic chronic kidney disease; I12.9 Hypertensive chronic kidney disease with stage 1 through stage 4 chronic kidney disease, or unspecified chronic kidney disease; N18.30 Chronic kidney disease, stage 3 unspecified; I25.810 Atherosclerosis of coronary artery bypass graft(s) without angina pectoris; F41.9 Anxiety disorder, unspecified; F17.200 Nicotine dependence, unspecified, uncomplicated; Z68.32 Body mass index [BMI] 32.0-32.9, adult; Z88.1 Allergy status to other antibiotic agents; Z20.822 Contact with and (suspected) exposure to COVID-19; Z88.0 Allergy status to penicillin; Z88.5 Allergy status to narcotic agent; Z98.51 Tubal ligation status; Z88.8 Allergy status to other drugs, medicaments and biological substances
CPT/HCPCS: 36415; 45385; 80053; 82962; 85025; 85610; 85730; 88305; J1200; J2250; J3010; J7030; U0003; G0500

== ENCOUNTER 2021-07-18 16:06 | Emergency (ER) | payer MEDICARE, MEDICAID ==
[~2021-07-18] VITALS: Ht 167.6 cm; Wt 90.7 kg
[2021-07-18 16:11] VITALS: BP 149/71
[2021-07-18 17:02] LABS: Basophils # (auto) 0.1 10 ^3/uL (0-0.2); Basophils % (auto) 1.2 % (0.0-2.0); Eosinophils # (auto) 0.2 10 ^3/uL (0-0.8); Eosinophils % (auto) 2.6 % (0.0-7.0); Hematocrit 43.5 % (36.0-46.0); Hemoglobin 14.4 g/dL (12.2-16.2); Lymphocytes % (auto) 26.9 % (10.0-50.0); Mean Corpuscular Hemoglobin 29.7 pg (28.0-32.0); Mean Corpuscular Hgb Conc. 33.2 g/dL (32.0-36.0); Mean Corpuscular Volume 89.5 fL (80.0-100.0); Monocytes # (auto) 0.6 10 ^3/uL (0-1.3); Monocytes % (auto) 8.5 % (0.0-12.0); Neutrophils # (auto) 4.6 10 ^3/uL (1.6-8.6); Neutrophils % (auto) 60.8 % (37.0-80.0); Red Blood Cells 4.87 10^6/uL (4.0-5.20); Red Cell Distribution Width 13.5 % (11.8-14.3); White Blood Cell 7.6 10^3/uL (4.4-10.8)
[2021-07-18 17:21] LABS: Albumin 3.6 g/dL (3.4-5.0); BUN/Creatinine Ratio 26.3; Calcium 8.9 mg/dL (8.5-10.1); Potassium 3.7 mmol/L (3.5-5.1)
[2021-07-18 17:24] LABS: Bilirubin, Total 0.4 mg/dL (0.2-1.0); Total Protein 7.4 g/dL (6.4-8.2)
== END 2021-07-18 18:54 | disposition home or self-care (01) ==
LOC: ER 16:06
DX: E11.21 Type 2 diabetes mellitus with diabetic nephropathy (principal); I10 Essential (primary) hypertension; M10.9 Gout, unspecified; E78.5 Hyperlipidemia, unspecified; Z90.49 Acquired absence of other specified parts of digestive tract; Z90.89 Acquired absence of other organs; Z95.0 Presence of cardiac pacemaker; Z79.899 Other long term (current) drug therapy; Z88.1 Allergy status to other antibiotic agents; Z88.0 Allergy status to penicillin; Z88.8 Allergy status to other drugs, medicaments and biological substances
CPT/HCPCS: 36415; 70450; 80053; 85025; 93005

== ENCOUNTER → 2021-08-09 | Outpatient (CLI) | payer MEDICARE, MEDICAID ==
[2021-08-09 08:08] LABS: Urine Bacteria NONE SEEN /hpf (None Seen); Urine Blood Negative /uL (Negative); Urine Specific Gravity 1.015 (1.001-1.035); Urine WBC 1 /hpf (0 - 5)
== END | disposition home or self-care (01) ==
LOC: LAB 07:46
PROVIDERS: ATTEND Internal Medicine
DX: N39.0 Urinary tract infection, site not specified (principal)
CPT/HCPCS: 81001; 87086

== ENCOUNTER → 2022-01-17 | Outpatient (CLI) | payer MEDICARE, MEDICAID ==
[2022-01-17 08:36] LABS: Magnesium 1.8 mg/dL (1.6-2.6)
== END | disposition home or self-care (01) ==
LOC: LAB 07:45
PROVIDERS: ATTEND Internal Medicine
DX: E78.5 Hyperlipidemia, unspecified (principal); E11.9 Type 2 diabetes mellitus without complications; I10 Essential (primary) hypertension
CPT/HCPCS: 36415; 80061; 83036; 83735

== ENCOUNTER 2022-04-29 06:47 | Emergency (ER) | payer MEDICARE, MEDICAID ==
[~2022-04-29] VITALS: Ht 167.6 cm; Wt 77.2 kg
[2022-04-29] MEDS ORDERED: ACCU-CHEK COMFORT CURVE STRIP VI ONE (07:45)
[2022-04-29 08:54] LABS: Basophils # (auto) 0.1 10 ^3/uL (0-0.2); Basophils % (auto) 0.8 % (0.0-2.0); Eosinophils # (auto) 0.1 10 ^3/uL (0-0.8); Eosinophils % (auto) 1.4 % (0.0-7.0); Lymphocytes % (auto) 13.2 % (10.0-50.0); Mean Corpuscular Hemoglobin 30.6 pg (28.0-32.0); Mean Corpuscular Hgb Conc. 33.4 g/dL (32.0-36.0); Mean Corpuscular Volume 91.6 fL (80.0-100.0); Monocytes # (auto) 0.4 10 ^3/uL (0-1.3); Monocytes % (auto) 5.7 % (0.0-12.0); Neutrophils # (auto) 6.1 10 ^3/uL (1.6-8.6); Neutrophils % (auto) 78.9 % (37.0-80.0); Red Blood Cells 4.26 10^6/uL (4.0-5.20); Red Cell Distribution Width 13.7 % (11.8-14.3); White Blood Cell 7.7 10^3/uL (4.4-10.8)
[2022-04-29 09:10] LABS: Albumin 3.4 g/dL (3.4-5.0); Calcium 8.7 mg/dL (8.5-10.1); Potassium 4.4 mmol/L (3.5-5.1)
[2022-04-29 09:13] LABS: BUN/Creatinine Ratio 28.1; Bilirubin, Total 0.4 mg/dL (0.2-1.0); Total Protein 6.4 g/dL (6.4-8.2)
[2022-04-29 11:24] LABS: Alcohol, Urine < 3.0 mg/dL (0-10); Amphetamine Screen, Urine NEGATIVE (NEGATIVE); Barbiturate Scree,Urine NEGATIVE (NEGATIVE); Benzodiazephine Screen, Urine NEGATIVE (NEGATIVE); Cannabinoid Screen, Urine NEGATIVE (NEGATIVE); Cocaine Screen, Urine NEGATIVE (NEGATIVE); Opiate Scree,Urine NEGATIVE (NEGATIVE); Phencyclidine Screen, Urine NEGATIVE (NEGATIVE)
[2022-04-29 11:54] LABS: Urine Bacteria FEW /hpf (None Seen); Urine Blood Negative /uL (Negative); Urine Mucus FEW (None Seen); Urine Specific Gravity 1.013 (1.001-1.035); Urine WBC 1 /hpf (0 - 5)
[2022-04-29 14:00] VITALS: BP 156/69
[2022-04-30] MEDS ORDERED: LATA0.0019 OP (17:13)
== END 2022-04-29 13:46 | disposition home or self-care (01) ==
LOC: EDBD 06:47 → ER 06:47
DX: S00.83XA Contusion of other part of head, initial encounter (principal); E11.21 Type 2 diabetes mellitus with diabetic nephropathy; R09.89 Other specified symptoms and signs involving the circulatory and respiratory systems; E11.649 Type 2 diabetes mellitus with hypoglycemia without coma; I12.9 Hypertensive chronic kidney disease with stage 1 through stage 4 chronic kidney disease, or unspecified chronic kidney disease; E11.22 Type 2 diabetes mellitus with diabetic chronic kidney disease; N18.9 Chronic kidney disease, unspecified; I48.91 Unspecified atrial fibrillation; E78.5 Hyperlipidemia, unspecified; M10.9 Gout, unspecified; Z86.73 Personal history of transient ischemic attack (TIA), and cerebral infarction without residual deficits; Z95.0 Presence of cardiac pacemaker; Z90.49 Acquired absence of other specified parts of digestive tract; Z90.89 Acquired absence of other organs; Z79.4 Long term (current) use of insulin; Z79.899 Other long term (current) drug therapy; Z88.0 Allergy status to penicillin; Z88.1 Allergy status to other antibiotic agents; Z88.2 Allergy status to sulfonamides; Z88.5 Allergy status to narcotic agent; Z88.8 Allergy status to other drugs, medicaments and biological substances; W18.39XA Other fall on same level, initial encounter; Y93.89 Activity, other specified; Y92.89 Other specified places as the place of occurrence of the external cause; Y99.8 Other external cause status
CPT/HCPCS: 36415; 70450; 71045; 80053; 80307; 81001; 82962; 83605; 83880; 84484; 85025; 87040; 93005

== ENCOUNTER 2022-04-30 07:31 | Inpatient (IN) | payer MEDICARE, MEDICAID ==
[~2022-04-30] VITALS: Ht 167.6 cm; Wt 76.3 kg
[2022-04-30] MEDS ORDERED: levoFLOXacin 500MG 100 ML IV ONE (07:45)
[2022-04-30] MEDS ORDERED: SODIUM CHLORIDE 0.9% 500 ML IV ONE (07:45)
[2022-04-30 08:21] LABS: Basophils # (auto) 0.1 10 ^3/uL (0-0.2); Basophils % (auto) 1.2 % (0.0-2.0); Eosinophils # (auto) 0.1 10 ^3/uL (0-0.8); Eosinophils % (auto) 2.9 % (0.0-7.0); Hematocrit 37.1 % (36.0-46.0); Hemoglobin 12.3 g/dL (12.2-16.2); Lymphocytes # (auto) 1.1 10 ^3/uL (0.4-5.4); Lymphocytes % (auto) 22.9 % (10.0-50.0); Mean Corpuscular Hemoglobin 30.5 pg (28.0-32.0); Mean Corpuscular Hgb Conc. 33.2 g/dL (32.0-36.0); Mean Corpuscular Volume 91.9 fL (80.0-100.0); Monocytes # (auto) 0.5 10 ^3/uL (0-1.3); Monocytes % (auto) 9.3 % (0.0-12.0); Neutrophils # (auto) 3.1 10 ^3/uL (1.6-8.6); Neutrophils % (auto) 63.7 % (37.0-80.0); Nucleated Red Blood Cells % 0.1 %; Red Blood Cells 4.04 10^6/uL (4.0-5.20); Red Cell Distribution Width 13.7 % (11.8-14.3); White Blood Cell 4.8 10^3/uL (4.4-10.8)
[2022-04-30 08:35] LABS: Albumin 3.3 g/dL (3.4-5.0); Calcium 8.8 mg/dL (8.5-10.1)
[2022-04-30 08:38] LABS: BUN/Creatinine Ratio 23.3; Bilirubin, Total 0.4 mg/dL (0.2-1.0); Total Protein 6.2 g/dL (6.4-8.2)
[2022-04-30 09:03] LABS: Potassium 3.9 mmol/L (3.5-5.1)
[2022-04-30] MEDS ORDERED: DEXTROSE (50%) 50ML SYRG IV PRN (10:00)
[2022-04-30] MEDS ORDERED: VANCOMYCIN PER PHARMACY 0 MG IV SCH (10:00)
[2022-04-30] MEDS ORDERED: ENOXAPARIN SOD 40 MG/0.4 ML SYRINGE SC SCH (10:00)
[2022-04-30] MEDS ORDERED: SOD CHL 0.45% 1,000 ML IV ONE (10:30)
[2022-04-30] MEDS ORDERED: VANCOMYCIN 1GM/250ML 250 ML IV ONE (11:00)
[2022-04-30 11:04] LABS: Cholesterol 117 mg/dL (< 200); HDL Cholesterol 51 mg/dL (40-59); LDL Cholesterol 59 mg/dL (< 100); Triglycerides 88 mg/dL (< 150)
[2022-04-30] MEDS: ACCU-CHEK COMFORT CURVE STRIP VI SCH ×3 (12:06→21:52)
[2022-04-30] MEDS: InsuLIN REG 1unit/0.01ml Soln (100units/ml) SC SCH ×3 (12:09→21:49)
[2022-04-30 17:00] VITALS: BP 92/66
[2022-04-30] MEDS ORDERED: LATA0.0019 OP (17:13)
[2022-04-30] MEDS: RIVAROXABAN 15 MG TAB PO SCH (17:23)
[2022-04-30] MEDS: ATORVASTATIN 20 MG TAB PO SCH (21:52)
[2022-04-30] MEDS: METOPROLOL TARTRATE 50 MG TAB PO SCH ×2 (21:52→22:12)
[2022-04-30 22:00] VITALS: BP 136/74
[2022-05-01 05:00] VITALS: BP 144/68
[2022-05-01] MEDS: InsuLIN REG 1unit/0.01ml Soln (100units/ml) SC SCH ×4 (06:06→21:27)
[2022-05-01 06:10] LABS: Basophils # (auto) 0.1 10 ^3/uL (0-0.2); Basophils % (auto) 1.1 % (0.0-2.0); Eosinophils # (auto) 0.2 10 ^3/uL (0-0.8); Eosinophils % (auto) 3.6 % (0.0-7.0); Hematocrit 38.2 % (36.0-46.0); Lymphocytes # (auto) 1.4 10 ^3/uL (0.4-5.4); Lymphocytes % (auto) 25.1 % (10.0-50.0); Mean Corpuscular Hemoglobin 31.1 pg (28.0-32.0); Mean Corpuscular Volume 91.5 fL (80.0-100.0); Monocytes # (auto) 0.6 10 ^3/uL (0-1.3); Monocytes % (auto) 10.7 % (0.0-12.0); Neutrophils # (auto) 3.3 10 ^3/uL (1.6-8.6); Neutrophils % (auto) 59.5 % (37.0-80.0); Nucleated Red Blood Cells % 0.1 %; Red Blood Cells 4.17 10^6/uL (4.0-5.20); Red Cell Distribution Width 13.3 % (11.8-14.3); White Blood Cell 5.5 10^3/uL (4.4-10.8)
[2022-05-01 06:17] LABS: Potassium 4.1 mmol/L (3.5-5.1)
[2022-05-01] MEDS: ACCU-CHEK COMFORT CURVE STRIP VI SCH ×4 (06:17→21:20)
[2022-05-01 06:24] LABS: Albumin 3.2 g/dL (3.4-5.0); BUN/Creatinine Ratio 24.2; Bilirubin, Total 0.4 mg/dL (0.2-1.0); Calcium 8.9 mg/dL (8.5-10.1); Total Protein 6.3 g/dL (6.4-8.2)
[2022-05-01 08:30] VITALS: BP 152/70
[2022-05-01] MEDS: METOPROLOL TARTRATE 50 MG TAB PO SCH (09:30)
[2022-05-01] MEDS: DONEPEZIL HYDROCHLORIDE 5 MG TAB PO SCH (09:31)
[2022-05-01] MEDS: amLODIPine BESYLATE 5 MG TAB PO SCH (09:32)
[2022-05-01] MEDS ORDERED: FUROSEMIDE 40 MG TAB PO SCH (10:00)
[2022-05-01] MEDS ORDERED: FUROSEMIDE 20 MG/2 ML VIAL IV ONE (12:15)
[2022-05-01 12:35] LABS: Magnesium 1.8 mg/dL (1.6-2.6); Phosphorus 4.1 mg/dL (2.5-4.90)
[2022-05-01 13:00] VITALS: BP 154/76
[2022-05-01] MEDS ORDERED: VANCOMYCIN 1GM/250ML 250 ML IV SCH (13:00)
[2022-05-01 17:48] VITALS: BP_SYST 111; BP_SYST 139; BP_DIAS 56; BP_DIAS 73
[2022-05-01] MEDS: RIVAROXABAN 15 MG TAB PO SCH (19:06)
[2022-05-01] MEDS: ATORVASTATIN 20 MG TAB PO SCH (21:12)
[2022-05-01 22:00] VITALS: BP 96/60
[2022-05-02 05:00] VITALS: BP 126/61
[2022-05-02] MEDS: ACCU-CHEK COMFORT CURVE STRIP VI SCH ×4 (05:51→22:13)
[2022-05-02] MEDS: InsuLIN REG 1unit/0.01ml Soln (100units/ml) SC SCH ×4 (05:51→22:14)
[2022-05-02 06:00] LABS: Basophils # (auto) 0.1 10 ^3/uL (0-0.2); Basophils % (auto) 1.7 % (0.0-2.0); Eosinophils # (auto) 0.2 10 ^3/uL (0-0.8); Eosinophils % (auto) 3.9 % (0.0-7.0); Hemoglobin 12.9 g/dL (12.2-16.2); Lymphocytes % (auto) 35.1 % (10.0-50.0); Mean Corpuscular Hemoglobin 31.2 pg (28.0-32.0); Mean Corpuscular Hgb Conc. 34.9 g/dL (32.0-36.0); Mean Corpuscular Volume 89.5 fL (80.0-100.0); Monocytes # (auto) 0.7 10 ^3/uL (0-1.3); Monocytes % (auto) 11.7 % (0.0-12.0); Neutrophils # (auto) 2.7 10 ^3/uL (1.6-8.6); Neutrophils % (auto) 47.6 % (37.0-80.0); Nucleated Red Blood Cells % 0.1 %; Red Blood Cells 4.13 10^6/uL (4.0-5.20); Red Cell Distribution Width 13.4 % (11.8-14.3); White Blood Cell 5.7 10^3/uL (4.4-10.8)
[2022-05-02 06:17] LABS: Potassium 3.9 mmol/L (3.5-5.1)
[2022-05-02 06:24] LABS: BUN/Creatinine Ratio 29.5; Calcium 8.7 mg/dL (8.5-10.1)
[2022-05-02 08:00] VITALS: BP 146/81
[2022-05-02 08:50] VITALS: BP 146/81
[2022-05-02] MEDS ORDERED: FUROSEMIDE 20 MG/2 ML VIAL IV SCH (10:00)
[2022-05-02] MEDS: DONEPEZIL HYDROCHLORIDE 5 MG TAB PO SCH (10:18)
[2022-05-02] MEDS: METOPROLOL TARTRATE 50 MG TAB PO SCH ×2 (10:19→22:13)
[2022-05-02] MEDS: amLODIPine BESYLATE 5 MG TAB PO SCH (10:19)
[2022-05-02 12:00] VITALS: BP 155/77
[2022-05-02] MEDS: LINEZOLID 600MG/300ML 300 ML IV SCH ×2 (12:26→22:00)
[2022-05-02 16:30] VITALS: BP 106/65
[2022-05-02] MEDS: RIVAROXABAN 15 MG TAB PO SCH (18:07)
[2022-05-02 22:00] VITALS: BP 119/63
[2022-05-02] MEDS ORDERED: LINEZOLID 600MG/300ML 300 ML IV SCH (22:00)
[2022-05-02] MEDS: ATORVASTATIN 20 MG TAB PO SCH (22:13)
[2022-05-03 05:00] VITALS: BP 143/62
[2022-05-03] MEDS: ACCU-CHEK COMFORT CURVE STRIP VI SCH ×3 (06:02→17:26)
[2022-05-03] MEDS: InsuLIN REG 1unit/0.01ml Soln (100units/ml) SC SCH ×3 (06:02→17:28)
[2022-05-03] MEDS: amLODIPine BESYLATE 5 MG TAB PO SCH (10:16)
[2022-05-03] MEDS: DONEPEZIL HYDROCHLORIDE 5 MG TAB PO SCH (10:16)
[2022-05-03] MEDS: LINEZOLID 600MG/300ML 300 ML IV SCH (10:16)
[2022-05-03] MEDS: METOPROLOL TARTRATE 50 MG TAB PO SCH (10:17)
[2022-05-03] MEDS ORDERED: LINE1TAB6 PO (13:13)
[2022-05-03] MEDS: RIVAROXABAN 15 MG TAB PO SCH (17:29)
== END 2022-05-03 19:11 | disposition home or self-care (01) | DRG 291 ==
LOC: ER 07:31 → OVERFLOW 10:00 → WEST WING 15:29
PROVIDERS: ADMIT Registered Nurse; ATTEND Internal Medicine
PROC: 05HB33Z Insertion of Infusion Device into Right Basilic Vein, Percutaneous Approach (ICD-10-PCS; principal; 2022-04-30)
PROC: B54MZZA Ultrasonography of Right Upper Extremity Veins, Guidance (ICD-10-PCS; 2022-04-30)
DX: I13.0 Hypertensive heart and chronic kidney disease with heart failure and stage 1 through stage 4 chronic kidney disease, or unspecified chronic kidney disease (principal); I50.31 Acute diastolic (congestive) heart failure; N17.9 Acute kidney failure, unspecified; R78.81 Bacteremia; E44.0 Moderate protein-calorie malnutrition; E78.5 Hyperlipidemia, unspecified; E11.22 Type 2 diabetes mellitus with diabetic chronic kidney disease; E11.649 Type 2 diabetes mellitus with hypoglycemia without coma; E86.0 Dehydration; F03.90 Unspecified dementia, unspecified severity, without behavioral disturbance, psychotic disturbance, mood disturbance, and anxiety; Z20.822 Contact with and (suspected) exposure to COVID-19; H54.8 Legal blindness, as defined in USA; I48.91 Unspecified atrial fibrillation; E11.65 Type 2 diabetes mellitus with hyperglycemia; W18.39XA Other fall on same level, initial encounter; S05.12XA Contusion of eyeball and orbital tissues, left eye, initial encounter; N18.31 Chronic kidney disease, stage 3a; Z88.0 Allergy status to penicillin; Z88.2 Allergy status to sulfonamides; Z88.8 Allergy status to other drugs, medicaments and biological substances; Z88.6 Allergy status to analgesic agent; Y93.89 Activity, other specified; Y92.89 Other specified places as the place of occurrence of the external cause; Y99.8 Other external cause status; Z83.3 Family history of diabetes mellitus; Z86.73 Personal history of transient ischemic attack (TIA), and cerebral infarction without residual deficits; Z68.27 Body mass index [BMI] 27.0-27.9, adult; Z79.4 Long term (current) use of insulin
CPT/HCPCS: 36415; 70450; 70486; 71045; 80048; 80053; 80061; 80202; 80307; 81001; 82962; 83036; 83605; 83735; 83880; 84100; 84439; 84443; 84484; 85025; 87040; 87081; 93005; 96365; 96367; 96372; G0378; J1815; J1956

== ENCOUNTER 2022-05-14 10:07 | Emergency (ER) | payer MEDICARE, MEDICAID ==
[~2022-05-14] VITALS: Ht 167.6 cm; Wt 77.2 kg
[~2022-05-14 10:07] MED LIST changes: +LATA0.0019 OP; +LINE1TAB6 PO
[2022-05-14] MEDS ORDERED: ONDANSETRON ODT 4 MG TAB PO ONE (11:30)
[2022-05-14] MEDS ORDERED: ACETAMINOPHEN/CODEINE#3 (300/30mg) TAB PO ONE (11:30)
[2022-05-14] MEDS ORDERED: ACE3T PO (14:12)
[2022-05-14] MEDS ORDERED: TAM04C PO (14:19)
[2022-05-14 15:30] VITALS: BP 126/78
== END 2022-05-14 16:10 | disposition home or self-care (01) ==
LOC: EDBD 10:07 → ER 10:07
DX: S39.012A Strain of muscle, fascia and tendon of lower back, initial encounter (principal); S50.02XA Contusion of left elbow, initial encounter; N20.0 Calculus of kidney; N13.30 Unspecified hydronephrosis; I12.9 Hypertensive chronic kidney disease with stage 1 through stage 4 chronic kidney disease, or unspecified chronic kidney disease; E11.22 Type 2 diabetes mellitus with diabetic chronic kidney disease; N18.9 Chronic kidney disease, unspecified; E78.5 Hyperlipidemia, unspecified; R51.9 Headache, unspecified; Z90.49 Acquired absence of other specified parts of digestive tract; Z95.0 Presence of cardiac pacemaker; Z90.89 Acquired absence of other organs; Z79.4 Long term (current) use of insulin; Z79.899 Other long term (current) drug therapy; Z88.0 Allergy status to penicillin; Z88.2 Allergy status to sulfonamides; Z88.8 Allergy status to other drugs, medicaments and biological substances; Y93.89 Activity, other specified; Y92.89 Other specified places as the place of occurrence of the external cause; Y99.8 Other external cause status
CPT/HCPCS: 70450; 72131; 73080; 99284; Q0162

== ENCOUNTER → 2022-05-22 | Outpatient (CLI) | payer MEDICARE, MEDICAID ==
[~2022-05-22] MED LIST changes: +ACE3T PO; +TAM04C PO
== END | disposition home or self-care (01) ==
LOC: XYW 14:47
PROVIDERS: ATTEND Internal Medicine
DX: I08.1 Rheumatic disorders of both mitral and tricuspid valves (principal); I48.91 Unspecified atrial fibrillation; I77.810 Thoracic aortic ectasia
CPT/HCPCS: 93306

== ENCOUNTER → 2022-05-24 | Outpatient (CLI) | payer MEDICARE, MEDICAID | END | disposition home or self-care (01) | LOC: XY 08:56 | PROVIDERS: ATTEND Internal Medicine | DX: I65.23 Occlusion and stenosis of bilateral carotid arteries (principal); I48.91 Unspecified atrial fibrillation; R55 Syncope and collapse | CPT/HCPCS: 93886 ==

== ENCOUNTER → 2022-05-29 | Outpatient (CLI) | payer MEDICARE, MEDICAID ==
[~2022-05-29] VITALS: Ht 167.6 cm; Wt 78.0 kg
== END | disposition home or self-care (01) ==
LOC: Rad HDHVI 13:23
PROVIDERS: ATTEND Internal Medicine Cardiovascular Disease
DX: E11.22 Type 2 diabetes mellitus with diabetic chronic kidney disease (principal); I13.0 Hypertensive heart and chronic kidney disease with heart failure and stage 1 through stage 4 chronic kidney disease, or unspecified chronic kidney disease; N18.9 Chronic kidney disease, unspecified; E78.00 Pure hypercholesterolemia, unspecified; E78.5 Hyperlipidemia, unspecified; R55 Syncope and collapse; I48.91 Unspecified atrial fibrillation; Z95.0 Presence of cardiac pacemaker; Z79.899 Other long term (current) drug therapy
CPT/HCPCS: 78472; 96374; 96375; A9505

== ENCOUNTER → 2022-05-30 | Outpatient (CLI) | payer MEDICARE, MEDICAID ==
[2022-05-30 13:09] LABS: Potassium 4.3 mmol/L (3.5-5.1)
[2022-05-30 13:16] LABS: BUN/Creatinine Ratio 32.5; Calcium 8.5 mg/dL (8.5-10.1)
== END | disposition home or self-care (01) ==
LOC: LAB 11:12
PROVIDERS: ATTEND Internal Medicine
DX: E11.22 Type 2 diabetes mellitus with diabetic chronic kidney disease (principal); N18.30 Chronic kidney disease, stage 3 unspecified
CPT/HCPCS: 36415; 80048

== ENCOUNTER → 2022-06-13 | Outpatient (CLI) | payer MEDICARE, MEDICAID ==
[~2022-06-13] VITALS: Ht 167.6 cm; Wt 77.1 kg
[~2022-06-13] MED LIST changes: +ADENOSINE 65 MG in GIVE UN-DILUTED 0 ML IV ONE; +ADENOSINE 90 MG/30 ML INJ IV ONE; +ONDANSETRON HCL 4 MG/2 ML VIAL ONE
== END | disposition home or self-care (01) ==
LOC: Rad HDHVI 09:25
PROVIDERS: ATTEND Internal Medicine Cardiovascular Disease
DX: I11.0 Hypertensive heart disease with heart failure (principal); I50.9 Heart failure, unspecified; I48.91 Unspecified atrial fibrillation; R55 Syncope and collapse; E11.9 Type 2 diabetes mellitus without complications; E78.00 Pure hypercholesterolemia, unspecified; Z95.0 Presence of cardiac pacemaker
CPT/HCPCS: 78452; 82962; 93005; 96374; 96375; A9500; J0153; J2405

== ENCOUNTER 2022-07-08 19:44 | Inpatient (IN) | payer MEDICARE, MEDICAID ==
[~2022-07-08] VITALS: Ht 167.6 cm; Wt 81.5 kg
[~2022-07-08 19:44] MED LIST changes: -ADENOSINE 65 MG in GIVE UN-DILUTED 0 ML IV ONE; -ADENOSINE 90 MG/30 ML INJ IV ONE; -ONDANSETRON HCL 4 MG/2 ML VIAL ONE
[2022-07-08] MEDS ORDERED: ONDANSETRON HCL 4 MG/2 ML VIAL IV PRN (21:30)
[2022-07-08] MEDS ORDERED: ACETAMINOPHEN 325 MG TAB PO PRN (21:30)
[2022-07-08] MEDS ORDERED: NITROGLYCERIN 0.4 MG SL TAB SL PRN (21:30)
[2022-07-08] MEDS ORDERED: DEXTROSE (50%) 50ML SYRG IV PRN (21:30)
[2022-07-08] MEDS ORDERED: MORPHINE SULFATE INJ 2 MG/ml SYRG IV PRN (21:30)
[2022-07-08 22:11] LABS: Basophils # (auto) 0.1 10 ^3/uL (0-0.2); Basophils % (auto) 1.2 % (0.0-2.0); Eosinophils # (auto) 0.2 10 ^3/uL (0-0.8); Eosinophils % (auto) 3.1 % (0.0-7.0); Hematocrit 38.8 % (36.0-46.0); Hemoglobin 13.3 g/dL (12.2-16.2); Lymphocytes # (auto) 1.6 10 ^3/uL (0.4-5.4); Lymphocytes % (auto) 28.3 % (10.0-50.0); Mean Corpuscular Hemoglobin 31.1 pg (28.0-32.0); Mean Corpuscular Hgb Conc. 34.2 g/dL (32.0-36.0); Mean Corpuscular Volume 90.8 fL (80.0-100.0); Monocytes # (auto) 0.5 10 ^3/uL (0-1.3); Monocytes % (auto) 9.3 % (0.0-12.0); Neutrophils # (auto) 3.3 10 ^3/uL (1.6-8.6); Neutrophils % (auto) 58.1 % (37.0-80.0); Nucleated Red Blood Cells % 0.1 %; Red Blood Cells 4.27 10^6/uL (4.0-5.20); Red Cell Distribution Width 13.1 % (11.8-14.3); White Blood Cell 5.8 10^3/uL (4.4-10.8)
[2022-07-08] MEDS ORDERED: PANTOPRAZOLE 40 MG/10 ML VIAL INJ IV ONE (22:30)
[2022-07-08 22:40] LABS: Albumin 3.5 g/dL (3.4-5.0); BUN/Creatinine Ratio 25.3; Bilirubin, Total 0.4 mg/dL (0.2-1.0); Calcium 8.3 mg/dL (8.5-10.1); Total Protein 6.2 g/dL (6.4-8.2)
[2022-07-08 22:44] LABS: Cholesterol 125 mg/dL (< 200)
[2022-07-08 22:48] LABS: HDL Cholesterol 48 mg/dL (40-59); LDL Cholesterol 66 mg/dL (< 100); Triglycerides 129 mg/dL (< 150)
[2022-07-09] MEDS: SODIUM CHLORIDE 0.9% 1,000 ML IV SCH ×2 (04:16→09:39)
[2022-07-09] MEDS: ACCU-CHEK COMFORT CURVE STRIP VI SCH ×5 (04:18→22:23)
[2022-07-09] MEDS: METOPROLOL TARTRATE 50 MG TAB PO SCH ×3 (04:18→22:23)
[2022-07-09] MEDS: ENOXAPARIN SOD 30 MG/0.3 ML SYRINGE SC SCH ×2 (04:19→09:54)
[2022-07-09] MEDS: InsuLIN REG 1unit/0.01ml Soln (100units/ml) SC SCH ×5 (04:20→22:34)
[2022-07-09] MEDS ORDERED: ENOXAPARIN SOD 30 MG/0.3 ML SYRINGE SC SCH (10:00)
[2022-07-09] MEDS: PANTOPRAZOLE 40 MG/10 ML VIAL INJ IV SCH (10:00)
[2022-07-09 13:18] LABS: Urine Bacteria MANY /hpf (None Seen); Urine Blood Negative /uL (Negative); Urine Specific Gravity 1.014 (1.001-1.035); Urine WBC 4 /hpf (0 - 5)
[2022-07-09] MEDS ORDERED: ERTAPENEM SOD INJ 1 GM in SODIUM CHL 0.9% 50 ML IV ONE (14:15)
[2022-07-09] MEDS ORDERED: PATIENTS OWN MEDICATION (Atorvastatin Calcium 80 MG) PO SCH (18:00)
[2022-07-09] MEDS ORDERED: RIVAROXABAN 20 MG TAB PO SCH (18:00)
[2022-07-09 22:40] VITALS: BP_SYST 143; BP_SYST 145; BP_DIAS 54; BP_DIAS 59
[2022-07-09 22:41] VITALS: BP 148/56
[2022-07-09] MEDS ORDERED: HYDR-4298 PO (23:08)
[2022-07-10 05:00] VITALS: BP_SYST 130; BP_SYST 132; BP_SYST 135; BP_DIAS 52
[2022-07-10] MEDS: ACCU-CHEK COMFORT CURVE STRIP VI SCH ×2 (06:52→11:44)
[2022-07-10] MEDS: InsuLIN REG 1unit/0.01ml Soln (100units/ml) SC SCH ×2 (06:58→11:57)
[2022-07-10 07:26] LABS: Basophils # (auto) 0.1 10 ^3/uL (0-0.2); Basophils % (auto) 1.3 % (0.0-2.0); Eosinophils # (auto) 0.1 10 ^3/uL (0-0.8); Eosinophils % (auto) 2.7 % (0.0-7.0); Hematocrit 34.3 % (36.0-46.0); Lymphocytes # (auto) 1.6 10 ^3/uL (0.4-5.4); Lymphocytes % (auto) 29.1 % (10.0-50.0); Mean Corpuscular Hemoglobin 31.4 pg (28.0-32.0); Mean Corpuscular Volume 89.8 fL (80.0-100.0); Monocytes # (auto) 0.5 10 ^3/uL (0-1.3); Monocytes % (auto) 9.1 % (0.0-12.0); Neutrophils # (auto) 3.2 10 ^3/uL (1.6-8.6); Neutrophils % (auto) 57.8 % (37.0-80.0); Red Blood Cells 3.82 10^6/uL (4.0-5.20); Red Cell Distribution Width 13.3 % (11.8-14.3); White Blood Cell 5.6 10^3/uL (4.4-10.8)
[2022-07-10 07:35] LABS: Calcium 8.3 mg/dL (8.5-10.1); Potassium 4.1 mmol/L (3.5-5.1)
[2022-07-10 07:39] LABS: BUN/Creatinine Ratio 28.1
[2022-07-10 08:30] VITALS: BP 143/60
[2022-07-10] MEDS: PANTOPRAZOLE 40 MG/10 ML VIAL INJ IV SCH (09:02)
[2022-07-10] MEDS: METOPROLOL TARTRATE 50 MG TAB PO SCH (09:02)
[2022-07-10] MEDS ORDERED: DONEPEZIL HYDROCHLORIDE 5 MG TAB PO SCH (10:00)
[2022-07-10] MEDS ORDERED: ERTAPENEM SOD INJ 1 GM in SODIUM CHL 0.9% 50 ML IV SCH (10:00)
[2022-07-10 12:40] VITALS: BP 127/77
[2022-07-10] MEDS ORDERED: NITR-79 PO (14:43)
== END 2022-07-10 16:51 | disposition home or self-care (01) | DRG 314 ==
LOC: EDBD 19:44 → EDUNIT# 19:44 → ER 19:46 → TELE 21:50 → TELE-WESTW 07-09 21:22
PROVIDERS: ADMIT Nurse Practitioner Family; ATTEND Internal Medicine
DX: I95.9 Hypotension, unspecified (principal); G93.41 Metabolic encephalopathy; N17.0 Acute kidney failure with tubular necrosis; N30.00 Acute cystitis without hematuria; N18.32 Chronic kidney disease, stage 3b; E11.22 Type 2 diabetes mellitus with diabetic chronic kidney disease; F03.90 Unspecified dementia, unspecified severity, without behavioral disturbance, psychotic disturbance, mood disturbance, and anxiety; I12.9 Hypertensive chronic kidney disease with stage 1 through stage 4 chronic kidney disease, or unspecified chronic kidney disease; F41.9 Anxiety disorder, unspecified; Z83.3 Family history of diabetes mellitus; Z86.73 Personal history of transient ischemic attack (TIA), and cerebral infarction without residual deficits; Z79.4 Long term (current) use of insulin; Z88.1 Allergy status to other antibiotic agents; Z88.5 Allergy status to narcotic agent; Z88.0 Allergy status to penicillin; Z88.2 Allergy status to sulfonamides; Z88.8 Allergy status to other drugs, medicaments and biological substances; Z98.51 Tubal ligation status; Z90.49 Acquired absence of other specified parts of digestive tract
CPT/HCPCS: 36415; 70450; 71045; 80048; 80053; 80061; 81001; 82962; 83036; 83605; 83735; 84443; 84484; 85025; 87040; 87426; 93005; 97163; C9113; G0378; J1815

== ENCOUNTER 2022-07-13 15:52 | Inpatient (IN) | payer MEDICARE, MEDICAID ==
[~2022-07-13] VITALS: Ht 167.6 cm; Wt 82.8 kg
[~2022-07-13 15:52] MED LIST changes: -AML5T PO; -HYDR50TA15 PO; -LINE1TAB6 PO; +NITR-79 PO
[2022-07-13 16:59] LABS: Basophils # (auto) 0.1 10 ^3/uL (0-0.2); Basophils % (auto) 1.3 % (0.0-2.0); Eosinophils # (auto) 0.1 10 ^3/uL (0-0.8); Eosinophils % (auto) 2.5 % (0.0-7.0); Hematocrit 40.7 % (36.0-46.0); Hemoglobin 13.7 g/dL (12.2-16.2); Lymphocytes # (auto) 1.8 10 ^3/uL (0.4-5.4); Lymphocytes % (auto) 32.4 % (10.0-50.0); Mean Corpuscular Hemoglobin 30.7 pg (28.0-32.0); Mean Corpuscular Hgb Conc. 33.8 g/dL (32.0-36.0); Mean Corpuscular Volume 90.7 fL (80.0-100.0); Monocytes # (auto) 0.4 10 ^3/uL (0-1.3); Monocytes % (auto) 7.2 % (0.0-12.0); Neutrophils # (auto) 3.2 10 ^3/uL (1.6-8.6); Neutrophils % (auto) 56.6 % (37.0-80.0); Nucleated Red Blood Cells % 0.1 %; Red Blood Cells 4.48 10^6/uL (4.0-5.20); Red Cell Distribution Width 12.9 % (11.8-14.3); White Blood Cell 5.7 10^3/uL (4.4-10.8)
[2022-07-13 17:18] LABS: Albumin 3.8 g/dL (3.4-5.0); BUN/Creatinine Ratio 25.5; Calcium 8.7 mg/dL (8.5-10.1)
[2022-07-13 17:20] LABS: Bilirubin, Total 0.5 mg/dL (0.2-1.0); Total Protein 6.7 g/dL (6.4-8.2)
[2022-07-13] MEDS ORDERED: NITROGLYCERIN 0.4 MG SL TAB SL PRN (23:15)
[2022-07-13] MEDS ORDERED: hydrALAZINE HCL 20 MG/ML VL IV PRN (23:15)
[2022-07-13] MEDS ORDERED: ACETAMINOPHEN 325 MG TAB PO PRN (23:15)
[2022-07-13] MEDS ORDERED: DOCUSATE SOD 100 MG CAP PO PRN (23:15)
[2022-07-13] MEDS ORDERED: HYDROcodone-ACET 5/325MG TAB PO PRN (23:15)
[2022-07-13] MEDS ORDERED: ONDANSETRON HCL 4 MG/2 ML VIAL IV PRN (23:15)
[2022-07-13] MEDS ORDERED: DEXTROSE (50%) 50ML SYRG IV PRN (23:15)
[2022-07-14] VITALS (7 sets, daily range): BP systolic 87–155; BP diastolic 46–79
[2022-07-14 05:24] LABS: Basophils # (auto) 0.1 10 ^3/uL (0-0.2); Basophils % (auto) 1.3 % (0.0-2.0); Eosinophils # (auto) 0.1 10 ^3/uL (0-0.8); Eosinophils % (auto) 2.8 % (0.0-7.0); Hematocrit 37.8 % (36.0-46.0); Hemoglobin 13.1 g/dL (12.2-16.2); Lymphocytes # (auto) 1.9 10 ^3/uL (0.4-5.4); Lymphocytes % (auto) 35.8 % (10.0-50.0); Mean Corpuscular Hemoglobin 31.1 pg (28.0-32.0); Mean Corpuscular Hgb Conc. 34.7 g/dL (32.0-36.0); Mean Corpuscular Volume 89.8 fL (80.0-100.0); Monocytes # (auto) 0.4 10 ^3/uL (0-1.3); Monocytes % (auto) 8.4 % (0.0-12.0); Neutrophils # (auto) 2.7 10 ^3/uL (1.6-8.6); Neutrophils % (auto) 51.7 % (37.0-80.0); Nucleated Red Blood Cells % 0.1 %; Red Blood Cells 4.21 10^6/uL (4.0-5.20); Red Cell Distribution Width 13.3 % (11.8-14.3); White Blood Cell 5.2 10^3/uL (4.4-10.8)
[2022-07-14 05:37] LABS: Albumin 3.6 g/dL (3.4-5.0); BUN/Creatinine Ratio 26.6; Calcium 8.8 mg/dL (8.5-10.1); Potassium 3.8 mmol/L (3.5-5.1)
[2022-07-14 05:40] LABS: Bilirubin, Total 0.4 mg/dL (0.2-1.0); Total Protein 6.2 g/dL (6.4-8.2)
[2022-07-14] MEDS: SODIUM CHLOR 0.9% PF (SALINE LOCK) 10ML VIAL/SYR IV SCH ×3 (06:00→22:00)
[2022-07-14] MEDS: ACCU-CHEK COMFORT CURVE STRIP VI SCH ×4 (06:06→22:35)
[2022-07-14] MEDS: InsuLIN REG 1unit/0.01ml Soln (100units/ml) SC SCH ×4 (06:28→22:34)
[2022-07-14] MEDS ORDERED: FAMOTIDINE (10MG/ML) 2ML VL IV SCH (10:00)
[2022-07-14] MEDS: ASPirin 81 mg TAB PO SCH (10:12)
[2022-07-14] MEDS: METOPROLOL TARTRATE 50 MG TAB PO SCH ×2 (10:12→22:33)
[2022-07-14] MEDS ORDERED: cefTRIAXone 1GM/50ML D5W 50 ML IV ONE (13:00)
[2022-07-14 16:02] LABS: Urine Bacteria NONE SEEN /hpf (None Seen); Urine Blood Negative /uL (Negative); Urine Specific Gravity 1.021 (1.001-1.035); Urine WBC 1 /hpf (0 - 5)
[2022-07-14] MEDS: ATORVASTATIN 20 MG TAB PO SCH (22:32)
[2022-07-14] MEDS: LATANOPROST 0.005 % OPTH(EYE) SOL 2.5ML EACHEYE SCH (22:32)
[2022-07-14] MEDS: DONEPEZIL HYDROCHLORIDE 5 MG TAB PO SCH (22:34)
[2022-07-15] VITALS (8 sets, daily range): BP systolic 87–151; BP diastolic 52–91
[2022-07-15] MEDS: ACCU-CHEK COMFORT CURVE STRIP VI SCH ×4 (06:21→22:46)
[2022-07-15] MEDS: InsuLIN REG 1unit/0.01ml Soln (100units/ml) SC SCH ×4 (06:21→22:00)
[2022-07-15] MEDS: SODIUM CHLOR 0.9% PF (SALINE LOCK) 10ML VIAL/SYR IV SCH ×3 (06:26→22:00)
[2022-07-15] MEDS: cefTRIAXone 1GM/50ML D5W 50 ML IV SCH (08:44)
[2022-07-15] MEDS: METOPROLOL TARTRATE 50 MG TAB PO SCH ×2 (10:00→21:57)
[2022-07-15] MEDS: ASPirin 81 mg TAB PO SCH (11:56)
[2022-07-15] MEDS: LATANOPROST 0.005 % OPTH(EYE) SOL 2.5ML EACHEYE SCH (21:56)
[2022-07-15] MEDS: ATORVASTATIN 20 MG TAB PO SCH (21:56)
[2022-07-15] MEDS: DONEPEZIL HYDROCHLORIDE 5 MG TAB PO SCH (21:56)
[2022-07-16 05:00] VITALS: BP 114/70
[2022-07-16] MEDS: SODIUM CHLOR 0.9% PF (SALINE LOCK) 10ML VIAL/SYR IV SCH ×3 (06:20→22:00)
[2022-07-16] MEDS: ACCU-CHEK COMFORT CURVE STRIP VI SCH ×4 (06:30→22:58)
[2022-07-16] MEDS: InsuLIN REG 1unit/0.01ml Soln (100units/ml) SC SCH ×4 (06:30→22:39)
[2022-07-16] MEDS: cefTRIAXone 1GM/50ML D5W 50 ML IV SCH (08:46)
[2022-07-16 09:00] VITALS: BP 111/58
[2022-07-16] MEDS: METOPROLOL TARTRATE 50 MG TAB PO SCH (10:26)
[2022-07-16] MEDS: ASPirin 81 mg TAB PO SCH (10:26)
[2022-07-16] MEDS ORDERED: MIDODRINE HCL 10 MG TAB PO ONE (12:45)
[2022-07-16 13:00] VITALS: BP_SYST 103; BP_SYST 129; BP_SYST 158; BP_SYST 88; BP_SYST 95; BP_DIAS 51; BP_DIAS 57; BP_DIAS 61
[2022-07-16] MEDS ORDERED: DORZ2SOL18 LEFTEYE (14:19)
[2022-07-16] MEDS ORDERED: NETA1DRO EACHEYE (14:21)
[2022-07-16] MEDS ORDERED: TIMO0.5S28 EACHEYE (14:23)
[2022-07-16 17:00] VITALS: BP 161/45
[2022-07-16] MEDS: MIDODRINE HCL 10 MG TAB PO SCH (18:12)
[2022-07-16 21:58] VITALS: BP 163/68
[2022-07-16] MEDS: DORZOLAMIDE HCL 2% OPTH(EYE) SOL 10ML LEFTEYE SCH (22:00)
[2022-07-16] MEDS: LATANOPROST EACHEYE SCH (22:00)
[2022-07-16] MEDS: LATANOPROST 0.005 % OPTH(EYE) SOL 2.5ML EACHEYE SCH (22:00)
[2022-07-16] MEDS ORDERED: METOPROLOL TARTRATE 50 MG TAB PO SCH (22:00)
[2022-07-16] MEDS: NETARSUDIL EACHEYE SCH (22:00)
[2022-07-16] MEDS: BRIMONIDINE 0.2% OPTH Soln 5ml EACHEYE SCH (22:00)
[2022-07-16] MEDS: TIMOLOL MAL 0.5% OPTH(EYE) SOL 5ML EACHEYE SCH (22:00)
[2022-07-16] MEDS: ATORVASTATIN 20 MG TAB PO SCH (22:45)
[2022-07-16] MEDS: DONEPEZIL HYDROCHLORIDE 5 MG TAB PO SCH (22:46)
[2022-07-17 04:27] VITALS: BP 106/50
[2022-07-17] MEDS: MIDODRINE HCL 10 MG TAB PO SCH ×3 (06:00→18:00)
[2022-07-17] MEDS: DORZOLAMIDE HCL 2% OPTH(EYE) SOL 10ML LEFTEYE SCH ×3 (06:00→21:37)
[2022-07-17] MEDS: SODIUM CHLOR 0.9% PF (SALINE LOCK) 10ML VIAL/SYR IV SCH ×3 (06:00→21:37)
[2022-07-17] MEDS: InsuLIN REG 1unit/0.01ml Soln (100units/ml) SC SCH ×4 (06:22→21:42)
[2022-07-17] MEDS: ACCU-CHEK COMFORT CURVE STRIP VI SCH ×4 (06:43→21:42)
[2022-07-17] MEDS: cefTRIAXone 1GM/50ML D5W 50 ML IV SCH (08:23)
[2022-07-17 09:00] VITALS: BP 99/59
[2022-07-17] MEDS: BRIMONIDINE 0.2% OPTH Soln 5ml EACHEYE SCH ×2 (10:00→21:36)
[2022-07-17] MEDS: TIMOLOL MAL 0.5% OPTH(EYE) SOL 5ML EACHEYE SCH ×2 (10:00→21:36)
[2022-07-17] MEDS: ASPirin 81 mg TAB PO SCH (11:34)
[2022-07-17 13:00] VITALS: BP 127/83
[2022-07-17 17:00] VITALS: BP 152/88
[2022-07-17] MEDS: NETARSUDIL EACHEYE SCH (21:36)
[2022-07-17] MEDS: LATANOPROST EACHEYE SCH (21:36)
[2022-07-17] MEDS: LATANOPROST 0.005 % OPTH(EYE) SOL 2.5ML EACHEYE SCH (21:36)
[2022-07-17] MEDS: ATORVASTATIN 20 MG TAB PO SCH (21:37)
[2022-07-17] MEDS: DONEPEZIL HYDROCHLORIDE 5 MG TAB PO SCH (21:37)
[2022-07-18 02:33] VITALS: BP 166/63
[2022-07-18 05:52] VITALS: BP 102/79
[2022-07-18] MEDS: SODIUM CHLOR 0.9% PF (SALINE LOCK) 10ML VIAL/SYR IV SCH ×3 (06:03→21:30)
[2022-07-18] MEDS: MIDODRINE HCL 10 MG TAB PO SCH ×3 (06:37→17:55)
[2022-07-18] MEDS: DORZOLAMIDE HCL 2% OPTH(EYE) SOL 10ML LEFTEYE SCH ×3 (06:37→21:30)
[2022-07-18] MEDS: ACCU-CHEK COMFORT CURVE STRIP VI SCH ×4 (06:38→22:10)
[2022-07-18] MEDS: InsuLIN REG 1unit/0.01ml Soln (100units/ml) SC SCH ×4 (06:39→22:10)
[2022-07-18 08:30] VITALS: BP 120/58
[2022-07-18] MEDS: cefTRIAXone 1GM/50ML D5W 50 ML IV SCH (10:01)
[2022-07-18] MEDS: BRIMONIDINE 0.2% OPTH Soln 5ml EACHEYE SCH ×2 (10:01→21:28)
[2022-07-18] MEDS: TIMOLOL MAL 0.5% OPTH(EYE) SOL 5ML EACHEYE SCH ×2 (10:01→21:29)
[2022-07-18] MEDS: ASPirin 81 mg TAB PO SCH (10:01)
[2022-07-18 13:00] VITALS: BP 139/69
[2022-07-18] MEDS ORDERED: FLUDROCORTISONE ACETATE 0.1 MG TAB PO ONE (14:00)
[2022-07-18 17:11] VITALS: BP_SYST 111; BP_SYST 160; BP_DIAS 57; BP_DIAS 80
[2022-07-18] MEDS: ATORVASTATIN 20 MG TAB PO SCH (21:23)
[2022-07-18] MEDS: DONEPEZIL HYDROCHLORIDE 5 MG TAB PO SCH (21:23)
[2022-07-18 21:30] VITALS: BP 137/62
[2022-07-18] MEDS: LATANOPROST 0.005 % OPTH(EYE) SOL 2.5ML EACHEYE SCH (21:30)
[2022-07-18] MEDS: NETARSUDIL EACHEYE SCH (22:00)
[2022-07-18] MEDS: LATANOPROST EACHEYE SCH (22:00)
[2022-07-18] MEDS: INSULIN LANTUS (GLARGINE) 1 /0.01ml (100units/ml) SC SCH (22:10)
[2022-07-19 05:00] VITALS: BP 151/61
[2022-07-19 05:52] LABS: Basophils # (auto) 0.1 10 ^3/uL (0-0.2); Eosinophils # (auto) 0.2 10 ^3/uL (0-0.8); Eosinophils % (auto) 3.9 % (0.0-7.0); Hematocrit 37.6 % (36.0-46.0); Hemoglobin 12.8 g/dL (12.2-16.2); Lymphocytes # (auto) 1.4 10 ^3/uL (0.4-5.4); Mean Corpuscular Hemoglobin 31.1 pg (28.0-32.0); Mean Corpuscular Volume 91.4 fL (80.0-100.0); Monocytes # (auto) 0.6 10 ^3/uL (0-1.3); Monocytes % (auto) 11.3 % (0.0-12.0); Neutrophils # (auto) 2.9 10 ^3/uL (1.6-8.6); Neutrophils % (auto) 55.8 % (37.0-80.0); Nucleated Red Blood Cells % 0.1 %; Red Blood Cells 4.11 10^6/uL (4.0-5.20); Red Cell Distribution Width 12.9 % (11.8-14.3); White Blood Cell 5.2 10^3/uL (4.4-10.8)
[2022-07-19] MEDS: SODIUM CHLOR 0.9% PF (SALINE LOCK) 10ML VIAL/SYR IV SCH ×3 (06:11→22:11)
[2022-07-19 06:21] LABS: BUN/Creatinine Ratio 27.8; Calcium 9.2 mg/dL (8.5-10.1); Potassium 4.6 mmol/L (3.5-5.1)
[2022-07-19] MEDS: MIDODRINE HCL 10 MG TAB PO SCH ×2 (06:28→12:22)
[2022-07-19] MEDS: DORZOLAMIDE HCL 2% OPTH(EYE) SOL 10ML LEFTEYE SCH ×3 (06:28→22:11)
[2022-07-19] MEDS: InsuLIN REG 1unit/0.01ml Soln (100units/ml) SC SCH ×4 (07:00→22:14)
[2022-07-19] MEDS: ACCU-CHEK COMFORT CURVE STRIP VI SCH ×4 (07:00→22:12)
[2022-07-19] MEDS: INSULIN LANTUS (GLARGINE) 1 /0.01ml (100units/ml) SC SCH ×2 (07:00→22:13)
[2022-07-19] MEDS: ASPirin 81 mg TAB PO SCH (09:17)
[2022-07-19] MEDS: cefTRIAXone 1GM/50ML D5W 50 ML IV SCH (09:17)
[2022-07-19] MEDS: BRIMONIDINE 0.2% OPTH Soln 5ml EACHEYE SCH ×2 (09:18→22:04)
[2022-07-19] MEDS: TIMOLOL MAL 0.5% OPTH(EYE) SOL 5ML EACHEYE SCH ×2 (09:18→22:04)
[2022-07-19 09:40] VITALS: BP 138/68
[2022-07-19] MEDS ORDERED: FLUDROCORTISONE ACETATE 0.1 MG TAB PO SCH (10:00)
[2022-07-19 13:10] VITALS: BP_SYST 136; BP_SYST 194; BP_SYST 77; BP_DIAS 49; BP_DIAS 72; BP_DIAS 88
[2022-07-19 16:40] VITALS: BP 153/60
[2022-07-19 22:00] VITALS: BP_SYST 157; BP_SYST 88; BP_SYST 98; BP_DIAS 58; BP_DIAS 60; BP_DIAS 61
[2022-07-19] MEDS: NETARSUDIL EACHEYE SCH (22:00)
[2022-07-19] MEDS: LATANOPROST EACHEYE SCH (22:00)
[2022-07-19] MEDS: ATORVASTATIN 20 MG TAB PO SCH (22:03)
[2022-07-19] MEDS: DONEPEZIL HYDROCHLORIDE 5 MG TAB PO SCH (22:03)
[2022-07-19] MEDS: LATANOPROST 0.005 % OPTH(EYE) SOL 2.5ML EACHEYE SCH (22:04)
[2022-07-19] MEDS: FLUDROCORTISONE ACETATE 0.1 MG TAB PO SCH (22:04)
[2022-07-20] VITALS (9 sets, daily range): BP systolic 86–167; BP diastolic 54–82
[2022-07-20] MEDS: ACCU-CHEK COMFORT CURVE STRIP VI SCH ×4 (06:11→22:00)
[2022-07-20] MEDS: SODIUM CHLOR 0.9% PF (SALINE LOCK) 10ML VIAL/SYR IV SCH ×3 (06:11→22:29)
[2022-07-20] MEDS: InsuLIN REG 1unit/0.01ml Soln (100units/ml) SC SCH ×4 (06:16→22:30)
[2022-07-20] MEDS: DORZOLAMIDE HCL 2% OPTH(EYE) SOL 10ML LEFTEYE SCH ×3 (06:16→22:29)
[2022-07-20] MEDS: INSULIN LANTUS (GLARGINE) 1 /0.01ml (100units/ml) SC SCH ×2 (06:18→22:44)
[2022-07-20] MEDS: cefTRIAXone 1GM/50ML D5W 50 ML IV SCH (09:14)
[2022-07-20] MEDS: FLUDROCORTISONE ACETATE 0.1 MG TAB PO SCH ×2 (09:18→23:00)
[2022-07-20] MEDS: ASPirin 81 mg TAB PO SCH (09:18)
[2022-07-20] MEDS: TIMOLOL MAL 0.5% OPTH(EYE) SOL 5ML EACHEYE SCH ×2 (09:19→22:28)
[2022-07-20] MEDS: BRIMONIDINE 0.2% OPTH Soln 5ml EACHEYE SCH ×2 (09:20→22:28)
[2022-07-20] MEDS: LATANOPROST 0.005 % OPTH(EYE) SOL 2.5ML EACHEYE SCH (22:28)
[2022-07-20] MEDS: LATANOPROST EACHEYE SCH (22:28)
[2022-07-20] MEDS: NETARSUDIL EACHEYE SCH (22:28)
[2022-07-20] MEDS: DONEPEZIL HYDROCHLORIDE 5 MG TAB PO SCH (22:29)
[2022-07-20] MEDS: ATORVASTATIN 20 MG TAB PO SCH (22:29)
[2022-07-21] VITALS (11 sets, daily range): BP systolic 103–185; BP diastolic 55–123
[2022-07-21] MEDS: SODIUM CHLOR 0.9% PF (SALINE LOCK) 10ML VIAL/SYR IV SCH ×3 (05:57→22:44)
[2022-07-21] MEDS: InsuLIN REG 1unit/0.01ml Soln (100units/ml) SC SCH ×4 (05:58→22:55)
[2022-07-21] MEDS: INSULIN LANTUS (GLARGINE) 1 /0.01ml (100units/ml) SC SCH ×2 (06:00→22:54)
[2022-07-21] MEDS: DORZOLAMIDE HCL 2% OPTH(EYE) SOL 10ML LEFTEYE SCH ×3 (06:20→23:03)
[2022-07-21] MEDS: ACCU-CHEK COMFORT CURVE STRIP VI SCH ×4 (06:20→22:44)
[2022-07-21 07:59] LABS: Basophils # (auto) 0.1 10 ^3/uL (0-0.2); Basophils % (auto) 1.3 % (0.0-2.0); Eosinophils # (auto) 0.2 10 ^3/uL (0-0.8); Eosinophils % (auto) 3.7 % (0.0-7.0); Hematocrit 37.2 % (36.0-46.0); Hemoglobin 12.6 g/dL (12.2-16.2); Lymphocytes # (auto) 1.5 10 ^3/uL (0.4-5.4); Lymphocytes % (auto) 27.4 % (10.0-50.0); Mean Corpuscular Hemoglobin 30.8 pg (28.0-32.0); Mean Corpuscular Hgb Conc. 33.9 g/dL (32.0-36.0); Mean Corpuscular Volume 90.9 fL (80.0-100.0); Monocytes # (auto) 0.5 10 ^3/uL (0-1.3); Monocytes % (auto) 10.3 % (0.0-12.0); Neutrophils # (auto) 3.1 10 ^3/uL (1.6-8.6); Neutrophils % (auto) 57.3 % (37.0-80.0); Nucleated Red Blood Cells % 0.2 %; Red Blood Cells 4.09 10^6/uL (4.0-5.20); Red Cell Distribution Width 13.2 % (11.8-14.3); White Blood Cell 5.3 10^3/uL (4.4-10.8)
[2022-07-21 08:32] LABS: Albumin 3.2 g/dL (3.4-5.0); BUN/Creatinine Ratio 26.6; Bilirubin, Total 0.5 mg/dL (0.2-1.0); Calcium 8.8 mg/dL (8.5-10.1); Phosphorus 4.5 mg/dL (2.5-4.90); Potassium 3.7 mmol/L (3.5-5.1); Total Protein 5.8 g/dL (6.4-8.2)
[2022-07-21] MEDS: ASPirin 81 mg TAB PO SCH (08:42)
[2022-07-21] MEDS: FLUDROCORTISONE ACETATE 0.1 MG TAB PO SCH ×2 (08:42→22:57)
[2022-07-21] MEDS: cefTRIAXone 1GM/50ML D5W 50 ML IV SCH (08:42)
[2022-07-21] MEDS: TIMOLOL MAL 0.5% OPTH(EYE) SOL 5ML EACHEYE SCH ×2 (08:47→22:56)
[2022-07-21] MEDS: BRIMONIDINE 0.2% OPTH Soln 5ml EACHEYE SCH ×2 (08:47→21:46)
[2022-07-21] MEDS: NETARSUDIL EACHEYE SCH (22:00)
[2022-07-21] MEDS: LATANOPROST EACHEYE SCH (22:00)
[2022-07-21] MEDS: LATANOPROST 0.005 % OPTH(EYE) SOL 2.5ML EACHEYE SCH (22:44)
[2022-07-21] MEDS: ATORVASTATIN 20 MG TAB PO SCH (22:57)
[2022-07-21] MEDS: DONEPEZIL HYDROCHLORIDE 5 MG TAB PO SCH (22:57)
[2022-07-22 05:00] VITALS: BP 126/82
[2022-07-22 05:37] LABS: Basophils # (auto) 0.1 10 ^3/uL (0-0.2); Basophils % (auto) 1.2 % (0.0-2.0); Eosinophils # (auto) 0.2 10 ^3/uL (0-0.8); Eosinophils % (auto) 4.7 % (0.0-7.0); Hematocrit 33.7 % (36.0-46.0); Hemoglobin 11.5 g/dL (12.2-16.2); Lymphocytes # (auto) 1.7 10 ^3/uL (0.4-5.4); Lymphocytes % (auto) 32.3 % (10.0-50.0); Mean Corpuscular Hemoglobin 31.1 pg (28.0-32.0); Mean Corpuscular Hgb Conc. 34.2 g/dL (32.0-36.0); Mean Corpuscular Volume 91.1 fL (80.0-100.0); Monocytes # (auto) 0.6 10 ^3/uL (0-1.3); Monocytes % (auto) 10.8 % (0.0-12.0); Neutrophils # (auto) 2.6 10 ^3/uL (1.6-8.6); Nucleated Red Blood Cells % 0.1 %; White Blood Cell 5.2 10^3/uL (4.4-10.8)
[2022-07-22 06:10] LABS: BUN/Creatinine Ratio 28.6; Calcium 8.5 mg/dL (8.5-10.1); Potassium 3.8 mmol/L (3.5-5.1)
[2022-07-22] MEDS: SODIUM CHLOR 0.9% PF (SALINE LOCK) 10ML VIAL/SYR IV SCH ×3 (06:41→23:02)
[2022-07-22] MEDS: DORZOLAMIDE HCL 2% OPTH(EYE) SOL 10ML LEFTEYE SCH ×3 (06:41→22:54)
[2022-07-22] MEDS: ACCU-CHEK COMFORT CURVE STRIP VI SCH ×4 (06:41→23:06)
[2022-07-22] MEDS: InsuLIN REG 1unit/0.01ml Soln (100units/ml) SC SCH ×3 (06:42→17:06)
[2022-07-22] MEDS: INSULIN LANTUS (GLARGINE) 1 /0.01ml (100units/ml) SC SCH (06:53)
[2022-07-22 08:02] VITALS: BP 166/63
[2022-07-22 08:35] VITALS: BP 150/54
[2022-07-22] MEDS: ASPirin 81 mg TAB PO SCH (10:10)
[2022-07-22] MEDS: TIMOLOL MAL 0.5% OPTH(EYE) SOL 5ML EACHEYE SCH ×2 (10:10→22:59)
[2022-07-22] MEDS: cefTRIAXone 1GM/50ML D5W 50 ML IV SCH (10:10)
[2022-07-22] MEDS: FLUDROCORTISONE ACETATE 0.1 MG TAB PO SCH ×2 (10:10→22:50)
[2022-07-22] MEDS: BRIMONIDINE 0.2% OPTH Soln 5ml EACHEYE SCH ×2 (10:10→22:57)
[2022-07-22 12:00] VITALS: BP 112/85
[2022-07-22 16:00] VITALS: BP 100/59
[2022-07-22 22:00] VITALS: BP 147/49
[2022-07-22] MEDS: ATORVASTATIN 20 MG TAB PO SCH (22:50)
[2022-07-22] MEDS: DONEPEZIL HYDROCHLORIDE 5 MG TAB PO SCH (22:50)
[2022-07-22] MEDS: LATANOPROST 0.005 % OPTH(EYE) SOL 2.5ML EACHEYE SCH (22:55)
[2022-07-22] MEDS: LATANOPROST EACHEYE SCH (23:02)
[2022-07-22] MEDS: NETARSUDIL EACHEYE SCH (23:02)
[2022-07-23] VITALS (7 sets, daily range): BP systolic 89–154; BP diastolic 55–107
[2022-07-23] MEDS: InsuLIN REG 1unit/0.01ml Soln (100units/ml) SC SCH ×4 (00:16→17:00)
[2022-07-23] MEDS: INSULIN LANTUS (GLARGINE) 1 /0.01ml (100units/ml) SC SCH ×2 (00:17→06:23)
[2022-07-23 06:17] LABS: Basophils # (auto) 0.1 10 ^3/uL (0-0.2); Basophils % (auto) 1.7 % (0.0-2.0); Eosinophils # (auto) 0.2 10 ^3/uL (0-0.8); Eosinophils % (auto) 4.3 % (0.0-7.0); Hematocrit 36.4 % (36.0-46.0); Hemoglobin 12.3 g/dL (12.2-16.2); Lymphocytes # (auto) 1.6 10 ^3/uL (0.4-5.4); Lymphocytes % (auto) 32.4 % (10.0-50.0); Mean Corpuscular Hemoglobin 30.7 pg (28.0-32.0); Mean Corpuscular Hgb Conc. 33.8 g/dL (32.0-36.0); Mean Corpuscular Volume 90.7 fL (80.0-100.0); Monocytes # (auto) 0.5 10 ^3/uL (0-1.3); Monocytes % (auto) 10.7 % (0.0-12.0); Neutrophils # (auto) 2.4 10 ^3/uL (1.6-8.6); Neutrophils % (auto) 50.9 % (37.0-80.0); Nucleated Red Blood Cells % 0.3 %; Red Blood Cells 4.01 10^6/uL (4.0-5.20); Red Cell Distribution Width 13.1 % (11.8-14.3); White Blood Cell 4.8 10^3/uL (4.4-10.8)
[2022-07-23] MEDS: SODIUM CHLOR 0.9% PF (SALINE LOCK) 10ML VIAL/SYR IV SCH ×2 (06:21→14:07)
[2022-07-23] MEDS: DORZOLAMIDE HCL 2% OPTH(EYE) SOL 10ML LEFTEYE SCH ×2 (06:21→14:06)
[2022-07-23] MEDS: ACCU-CHEK COMFORT CURVE STRIP VI SCH ×3 (06:22→17:00)
[2022-07-23 07:08] LABS: BUN/Creatinine Ratio 26.4; Calcium 8.8 mg/dL (8.5-10.1)
[2022-07-23] MEDS: FLUDROCORTISONE ACETATE 0.1 MG TAB PO SCH (10:04)
[2022-07-23] MEDS: ASPirin 81 mg TAB PO SCH (10:04)
[2022-07-23] MEDS: BRIMONIDINE 0.2% OPTH Soln 5ml EACHEYE SCH (10:09)
[2022-07-23] MEDS: TIMOLOL MAL 0.5% OPTH(EYE) SOL 5ML EACHEYE SCH (10:09)
[2022-07-23] MEDS ORDERED: FLU01T PO (12:12)
== END 2022-07-23 17:40 | disposition home health service (06) | DRG 73 ==
LOC: ER 15:52 → EDBD 15:52 → EDUNIT# 15:52 → TELE 23:10 → TELE-WESTW 07-14 05:25
PROVIDERS: ADMIT Nurse Practitioner Family; ATTEND Internal Medicine
DX: G90.9 Disorder of the autonomic nervous system, unspecified (principal); N17.0 Acute kidney failure with tubular necrosis; I95.1 Orthostatic hypotension; F03.90 Unspecified dementia, unspecified severity, without behavioral disturbance, psychotic disturbance, mood disturbance, and anxiety; E11.65 Type 2 diabetes mellitus with hyperglycemia; N18.30 Chronic kidney disease, stage 3 unspecified; E11.22 Type 2 diabetes mellitus with diabetic chronic kidney disease; G25.81 Restless legs syndrome; I12.9 Hypertensive chronic kidney disease with stage 1 through stage 4 chronic kidney disease, or unspecified chronic kidney disease; F41.9 Anxiety disorder, unspecified; M10.9 Gout, unspecified; Z88.1 Allergy status to other antibiotic agents; Z88.5 Allergy status to narcotic agent; Z88.0 Allergy status to penicillin; Z83.3 Family history of diabetes mellitus; Z86.73 Personal history of transient ischemic attack (TIA), and cerebral infarction without residual deficits; Z95.0 Presence of cardiac pacemaker; Z88.2 Allergy status to sulfonamides; Z88.8 Allergy status to other drugs, medicaments and biological substances; Z98.51 Tubal ligation status; Z90.49 Acquired absence of other specified parts of digestive tract
CPT/HCPCS: 36415; 70450; 71045; 80048; 80053; 81001; 82533; 82962; 83735; 84100; 84484; 85025; 87086; 93005; 93886; 97116; 97163; 97530; G0378; J0696; J1815; J3490